=== PATIENT | female | born 1990 | race Caucasian/White ===

== ENCOUNTER 2024-08-13 12:44 | Outpatient (CLI) | payer OTHER, SELFPAY | END 2024-08-13 12:45 | disposition home or self-care (01) | PROVIDERS: PCP Family Medicine; Visit Provider Advanced Practice Midwife | DX: N91.2 Amenorrhea, unspecified (principal); Z32.01 Encounter for pregnancy test, result positive | CPT/HCPCS: 36415; 84702; 86850; 86900; 86901 ==

== ENCOUNTER 2025-02-01 14:08 | Outpatient (RCR) | payer OTHER, SELFPAY | END 2025-03-29 16:41 | disposition home or self-care (01) | LOC: ANHDMC 14:08 | PROVIDERS: PCP Family Medicine; Visit Provider Obstetrics & Gynecology | DX: O24.419 Gestational diabetes mellitus in pregnancy, unspecified control (principal); Z3A.00 Weeks of gestation of pregnancy not specified; Z71.89 Other specified counseling | CPT/HCPCS: G0108 ==

== ENCOUNTER 2025-03-15 15:40 | Outpatient (RCR) | payer OTHER, SELFPAY ==
[2025-02-10 18:11] VITALS: BP 127/54; PULSE 71
[2025-02-15 16:53] VITALS: BP 115/57; PULSE 73
[2025-02-22 17:03] VITALS: BP 129/72; PULSE 78
[2025-03-01 16:22] VITALS: BP 133/74; PULSE 75
[2025-03-08 16:59] VITALS: BP 130/71; PULSE 73
--- NOTE | ~2025-03-15 | US_ITS ---
EXAMINATION: US OB BPP wo non-stress DATE: 02/15/2025 17:10 INDICATION: GDM . TECHNIQUE: Real-time ultrasound of the pelvis was performed. COMPARISON: 02/10/2025 FINDINGS: There is a single living fetus in vertex presentation, longitudinal lie. The placenta is posterior, well distant from the cervix. heart rate is 145 bpm. The deepest vertical pocket measures 5.6 c m. Biophysical profile performed by the technologist: breathing (30 sec sustained breathing in 30 minutes): 2 out of 2. movement (3 gross body movements in 30 minutes: 2 out of 2. tone (one episode of onerbvy-sqbferwhl-jpeiweh limb movement): 2 out of 2. Amniotic fluid pocket (2 cm): 2 out of 2. Total score: 8 out of 8. IMPRESSION: Single living fetus in vertex presentation. Biophysical profile 8 out of 8. Reviewed, dictated and finalized at location K.
--- NOTE | ~2025-03-15 | US_ITS ---
EXAMINATION: US OB BPP wo non-stress DATE: 03/15/2025 17:27 CDT INDICATION: Gestational diabetes TECHNIQUE: Real-time transabdominal obstetric ultrasound. FINDINGS: There is a single intrauterine gestation in vertex presentation. The placenta is posterior without p lacenta previa. Deepest vertical pocket of amniotic fluid measures 5.4 cm cardiac activity and movement is noted with a heart rate of 154 beats per minute. Biophysical profile: breathin of 2 movement: 2 of 2 tone: 2 of 2 Amniotic fluid pocket: 2 of 2 Total score: 8 of 8 IMPRESSION: 1. Single intrauterine gestation in vertex presentation. 2: Total biophysical profile score of 8 out of 8. Reviewed, dictated and finalized at location A.
--- NOTE | ~2025-03-15 | US_ITS ---
EXAMINATION: US OB BPP wo non-stress DATE: 02/22/2025 17:04 CDT INDICATION: Gestational diabetes TECHNIQUE: Real-time transabdominal obstetric ultrasound. FINDINGS: There is a single intrauterine gestation in vertex presentation. The placenta is posterior, within t he fundus, without placenta previa. cardiac activity and movement is noted with a heart rate of 152 beats per minute. Biophysical profile: breathin of 2 movement: 2 of 2 tone: 2 of 2 Amniotic fluid pocket: 2 of 2 Total score: 8 of 8 Deepest vertical pocket measures 5.3 cm. IMPRESSION: 1. Single intrauterine gestation in vertex presentation. 2: Total biophysical profile score of 8 out of 8. Reviewed, dictated and finalized at location A.
--- NOTE | ~2025-03-15 | US_ITS ---
EXAMINATION: US OB BPP wo non-stress DATE: 02/10/2025 18:08 INDICATION: Gestational diabetes third trimester TECHNIQUE: Real-time pelvic ultrasound was performed. The interpreting radiologist was not present for the study. COMPARISON: None. FINDINGS: There is a single intrauterine gestation in vertex presentation. The placenta is posterior within the fundus of the uterus. heart rate is 155 beats per minute (bpm). Amniotic fluid volume appears subjectively normal, with the deepest vertical pocket measuring 9.14 cm . Biophysical profile performed by the technologist: breathing (30 sec sustained breathing in 30 minutes): 2 out of 2 movement (3 gross body movements in 30 minutes): 2 out of 2 tone (one episode of bhxvrgc-cjjzzvyud-acripft limb movement): 2 out of 2 Amniotic fluid pocket (2 cm): 2 out of 2 Total score: 8 out of 8 IMPRESSION: 1. Single intrauterine gestation in vertex presentation with heart rate of 155 bpm. 2. Biophysical profile 8 out of 8. Reviewed, dictated and finalized at location A. IMPRESSION: 1. Single intrauterine gestation in vertex presentation with heart rate o f 155 bpm. 2. Biophysical profile 8 out of 8.
--- NOTE | ~2025-03-15 | US_ITS ---
EXAMINATION: US OB BPP wo non-stress DATE: 03/01/2025 17:10 CDT INDICATION: Gestational diabetes TECHNIQUE: Real-time transabdominal obstetric ultrasound. FINDINGS: There is a single intrauterine gestation in vertex presentation. The placenta is posterior without placenta previa. cardiac activity and movement is noted with a heart rate of 144 beats per minute. Biophysical profile: breathin of 2 movement: 2 of 2 tone: 2 of 2 Amniotic fluid pocket: 2 of 2. The deepest vertical pocket measures 5.5 centimeters Total score: 8 of 8 IMPRESSION: 1. Single intrauterine gestation in vertex presentation. 2: Total biophysical profile score of 8 out of 8. Reviewed, dictated and finalized at location A.
--- NOTE | ~2025-03-15 | US_ITS ---
LIMITED OBSTETRIC ULTRASOUND/BIOPHYSICAL PROFILE Ordering provider: Roland Bustos MD History: . GDM . Comparison: None. FINDINGS: MATERNAL CERVIX: Not visualized. PRESENTATION: Vertex. Longitudinal lie. PLACENTAL LOCATION: Fundal posterior. No previa. HEART RATE: 157 bpm (normal is between 110 to 160 bpm). AMNIOTIC FLUID INDEX: Largest vertical pocket is 6.2 cm. OTHER: Maternal ovaries not visualized. SCORE: breathing movements: 2 movements: 2 tone: 2 Amniotic fluid volume: 2 Total: 8 IMPRESSION: Normal biophysical profile. Reviewed, dictated and finalized at location A. IMPRESSION: Normal biophysical profile.
[2025-03-15 17:15] VITALS: BP 121/66; PULSE 69
== END 2025-03-29 17:57 | disposition home or self-care (01) ==
LOC: ANHOBOP 15:40
PROVIDERS: PCP Family Medicine; Visit Provider Obstetrics & Gynecology
DX: O24.419 Gestational diabetes mellitus in pregnancy, unspecified control (principal); Z3A.33 33 weeks gestation of pregnancy; Z3A.34 34 weeks gestation of pregnancy; Z3A.35 35 weeks gestation of pregnancy; Z3A.36 36 weeks gestation of pregnancy; Z3A.37 37 weeks gestation of pregnancy; Z3A.38 38 weeks gestation of pregnancy
CPT/HCPCS: 59025; 76819

== ENCOUNTER 2025-03-19 11:01 | Outpatient (CLI) | payer OTHER, SELFPAY ==
--- OUTSIDE RECORDS SUMMARY | 2025-03-19 11:06 | XMS_ITS | Data Portability ---
Author Organization [facility] Joseluis PRESTON Address [address] [facility] [place] [address] Care Team Providers Care Mortarman Name Role Phone MARK CHIU Investment Counselor Assessment Encounter Date Assessment Date Assessment LastModified by Organization Details LastModified Time 04/23/2022 04/23/2022 JOANNA Nichole Not available 04/23/2022 10:29:30 Plan of Treatment Reminders Order Date Submit Date Provider Last Modified By Organization Details Last Modified Time Details Appointments None recorded. Lab Pap smear tests - FPAR 2.0 set 2021 022 [facility], [facility], [address], [place], [address], 2 09:26:59 vaginal pathogens panel, ROSIO+probe , vaginal fluid 2021 022 [facility], [address] [place] [address], [facility] [address], [place], [address], 2 06:13:15 CT + NG + TV, DNA, urine/swa b 2017 018 [facility], [facility], [address], [place], [address], 8 06:08:01 test, urine 2017 018 [email or web address] In-Office Order, Internal Use Only DO Not Attach Compendium DO Not Attach Compendium, Do Not Delete/merge, [id number] 8 18:08:45 urinalysi s, dipstick 2017 018 [email or web address] In-Office Order, Internal Use Only DO Not Attach Compendium DO Not Attach Compendium, Do Not Delete/merge, [id number] 8 18:08:45 test, urine 2015 016 HERMELINDO In-Office Order, Internal Use Only DO Not Attach Compendium DO Not Attach Compendium, Do Not Delete/merge, [id number] 6 13:13:52 urinalysi s, dipstick 2015 016 [email or web address] In-Office Order, Internal Use Only DO Not Attach Compendium DO Not Attach Compendium, Do Not Delete/merge, [id number] 6 17:53:03 test, urine 2015 016 In-Office Order, Internal Use Only DO Not Attach Compendium DO Not Attach Compendium, Do Not Delete/merge, [id number] 6 17:53:04 dhea-sulf ate, serum 2015 016 HERMELINDO GONZALEZ, [facility], [address], [place], [address], 6 07:11:09 lipid panel, serum 2015 016 HERMELINDO GONZALEZ, [facility], [address], [place], [address], 6 07:11:08 HbA1c (hemoglob in A1c), blood 2015 016 HERMELINDO GONZALEZ, [address] [place] [address] [address], [address], [place], [address], 6 07:11:09 CMP, serum or plasma 2015 016 HERMELINDO LISA, [address], [address], [place], [address], 6 07:11:08 testoster one, total, serum 2015 016 HERMELINDO GONZALEZ, [address], [address], [place], [address], 6 07:11:09 FSH (follicle -stimulat ing hormone), serum 2015 016 HERMELINDO GONZALEZ, [address], [address], [place], [address], 6 07:11:11 lh (luteiniz ing hormone), serum 2015 016 HERMELINDO GONZALEZ, [address], [address], [place], [address], 6 07:11:10 TSH, serum or plasma 2015 016 HERMELINDO GONZALEZ, [address], [address], [place], [address], 6 07:11:10 prolactin , serum 2015 016 HERMELINDO GONZALEZ, [address], [address], [place], [address], 6 07:11:11 pap, IG + HPV, cervical 2015 016 HERMELINDO GONZALEZ, [address], [address], [place], [address], 6 09:23:06 bacterial vaginosis + vaginitis panel, vaginal 2015 016 HERMELINDO GONZALEZ, [address], [address], [place], [address], 6 06:05:40 HSV (1+2) DNA, qual, PCR, unspecifi ed specimen 2015 016 HERMELINDO RENDONRP, [address], [address], [place], [address], 6 06:05:41 culture, vaginal/r ectal, streptoco ccus group B 2015 016 HERMELINDO [facility], [address], [address], [place], [address], 6 06:05:41 test, urine 2014 015 [email or web address] In-Office Order, Internal Use Only DO Not Attach Compendium DO Not Attach Compendium, Do Not Delete/merge, [id number] 5 16:07:28 urinalysi s, dipstick 2014 015 [email or web address] In-Office Order, Internal Use Only DO Not Attach Compendium DO Not Attach Compendium, Do Not Delete/merge, [id number] 5 16:07:28 pap, IG + reflex HR HPV 2014 015 HERMELINDO GONZALEZ, [address], [address], [place], [address], 5 10:40:15 bacterial vaginosis + vaginitis panel, vaginal 2014 015 HERMELINDO [facility], [address], [address], [place], [address], 5 20:08:12 HSV (1+2) DNA, qual, PCR, unspecifi ed specimen 2014 015 HERMELINDO RENDONRP, [address], [address], [place], [address], 5 20:08:13 Referral None recorded. Procedures None recorded. Surgeries None recorded. Imaging None recorded. Medication Orders Mirena 21 mcg/24 hr (up to 8 years) 52 mg intrauter ine device 2021 022 [email or web address] Not available 2 16:42:52 calcium 600 mg (as carbonate )-vitamin D3 20 mcg (800 unit) tablet 2017 018 [id number] [facility], [address] [place] [address], [address], 2 08:51:20 multivita min tablet 2017 018 [id number] In [facility], [address] [place] [address], [address], 2 08:51:31 Lo Loestrin Fe 1 mg-10 mcg (24)/10 mcg (2) tablet 2017 018 [email or web address] [facility] [id number], [address], 2 08:51:26 Cryselle (28) 0.3 mg-30 mcg tablet 2015 016 [facility] [employer] [facility], [address], [place], [place], [id number], 8 16:33:12 calcium 600 mg (as carbonate )-vitamin D3 20 mcg (800 unit) tablet 2015 016 [facility], [address], [id number], 2 08:51:20 metformin 1,000 mg tablet 2015 016 [facility] [employer] [facility]21106, [address], [place], [place], [id number], 8 16:34:53 Vitamin tablet [address] [facility]08263, [address], [place], [place], [id number], 8 16:34:20 simvastat in 20 mg tablet [address] [facility]98434, [address], [place], [place], [id number], 8 16:34:23 Lo Loestrin Fe 1 mg-10 mcg (24)/10 mcg (2) tablet 2015 016 [facility] #[facility], [address], [place], [place], [id number], 2 08:51:26 Patient TargetsNo targets recorded. Patient Instructions Encounter Date Encounter Id Patient Instructions Last Modified By Organization Details Last Modified Time 04/23/2016 [id number] When You Want to Lose Weight: Care Instructions [email or web address] Not available 04/23/2016 17:54:20 polycystic ovary syndrome: care instructions [email or web address] Not available 04/23/2016 17:54:20 05/13/2016 [id number] polycystic ovary syndrome: care instructions [email or web address] Not available 05/19/2016 12:27:57 05/05/2018 [id number] prediabetes: care instructions [email or web address] Not available 05/05/2018 18:08:45 polycystic ovary syndrome: care instructions [email or web address] Not available 05/05/2018 18:08:45 When You Want to Lose Weight: Care Instructions [email or web address] Not available 05/05/2018 18:39:14 27 yo morbidly obese CF, with history of PCOS, 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 Patient reports irregular menses and bleeding (light to heavy) for 2.5 weeks - one day used 30+ pads. Recently started on Metformin and Phentermine by PCP, patient admits to having 2 regular periods prior to this episode. Now, her period is similar to past menstruation. Will re-schedule annual WWE due to patient being on her period. Desires oral BCP to help regulate bleeding. Discussed options for weight loss while here in office, BMI 60.9. Patient prefers to continue weight loss medication and does not want information regarding weight loss surgery. PHQ is 14 and has recently begun taking Zoloft. [email or web address] Not available 05/05/2018 18:27:38 04/23/2022 [id number] heavy menstrual periods: care instructions Not available 04/23/2022 09:31:49 learning about control: intrauterine device (iud) Not available 04/23/2022 09:31:49 Reason for Referral None Reported. Results Created Date Observation Date Name Description Value Unit Range Abnormal Flag Note LastModifiedBy Organization Detail LastModifiedTime 05/05/20 18 05/05/2018 urina lysis , dipst ick Leukocytes Negati ve Not Available In-Office Order Internal Use Only DO Not Attach Compendium DO Not Attach Compendium, Do Not Delete/merge, [id number] 05/05/2018 17:05:17 05/05/20 18 05/05/2018 urina lysis , dipst ick Nitrite negati ve Not Available In-Office Order Internal Use Only DO Not Attach Compendium DO Not Attach Compendium, Do Not Delete/merge, [id number] 05/05/2018 17:05:17 05/05/20 18 05/05/2018 urina lysis , dipst ick Urobilinogen .2 Not Available In-Of fice Order Internal Use Only DO Not Attach Compendium DO Not Attach Compendium, Do Not Delete/merge, [id number] 05/05/2018 17:05:17 05/05/20 18 05/05/2018 urina lysis , dipst ick Protein Negati ve Not Available In-Office Order Internal Use Only DO Not Attach Compendium DO Not Attach Compendium, Do Not Delete/merge, [id number] 05/05/2018 17:05:17 05/05/20 18 05/05/2018 urina lysis , dipst ick pH 5.5 Not Available In-Office Order Internal Use Only DO Not Attach Compendium DO Not Attach Compendium, Do Not Delete/merge, [id number] 05/05/2018 17:05:17 05/05/20 18 05/05/2018 urina lysis , dipst ick Blood Large Not Available In-Office Order Internal Use Only DO Not Attach Compendium DO Not Attach Compendium, Do Not Delete/merge, 05/05/2018 17:05:17 05/05/20 18 05/05/2018 urina lysis , dipst ick Specific [place] 1.030 Not Available In-Off ice Order Internal Use Only DO Not Attach Compendium DO Not Attach Compendium, Do Not Delete/merge, 05/05/2018 17:05:17 05/05/20 18 05/05/2018 urina lysis , dipst ick Ketone Negati ve Not Available In-Office Order Internal Use Only DO Not Attach Compendium DO Not Attach Compendium, Do Not Delete/merge, 05/05/2018 17:05:17 05/05/20 18 05/05/2018 urina lysis , dipst ick Bilirubin Negati ve Not Available In-Office Order Internal Use Only DO Not Attach Compendium DO Not Attach Compendium, Do Not Delete/merge, 05/05/2018 17:05:17 05/05/20 18 05/05/2018 urina lysis , dipst ick Glucose Negati ve Not Available In-Office Order Internal Use Only DO Not Attach Compendium DO Not Attach Compendium, Do Not Delete/merge, 05/05/2018 17:05:17 05/05/20 18 05/05/2018 pregn lashaun test, urine HCG negati ve Not Available In-Office Order Internal Use Only DO Not Attach Compendium DO Not Attach Compendium, Do Not Delete/merge, 05/05/2018 17:04:55 05/15/20 16 05/15/2016 pregn lashaun test, urine HCG negati ve Not Available In-Office Order Internal Use Only DO Not Attach Compendium DO Not Attach Compendium, Do Not Delete/merge, 05/15/2016 17:14:33 04/23/20 16 04/23/2016 pregn lashaun test, urine HCG negati ve Not Available In-Office Order Internal Use Only DO Not Attach Compendium DO Not Attach Compendium, Do Not Delete/merge, 04/23/2016 16:52:28 04/23/20 16 04/23/2016 urina lysis , dipst ick Leukocytes Negati ve Not Available In-Office Order Internal Use Only DO Not Attach Compendium DO Not Attach Compendium, Do Not Delete/merge, 04/23/2016 16:52:15 04/23/20 16 04/23/2016 urina lysis , dipst ick Nitrite negati ve Not Available In-Office Order Internal Use Only DO Not Attach Compendium DO Not Attach Compendium, Do Not Delete/merge, 04/23/2016 16:52:15 04/23/20 16 04/23/2016 urina lysis , dipst ick Urobilinogen .2 Not Available In-Of fice Order Internal Use Only DO Not Attach Compendium DO Not Attach Compendium, Do Not Delete/merge, 04/23/2016 16:52:15 04/23/20 16 04/23/2016 urina lysis , dipst ick Protein Negati ve Not Available In-Office Order Internal Use Only DO Not Attach Compendium DO Not Attach Compendium, Do Not Delete/merge, 04/23/2016 16:52:15 04/23/20 16 04/23/2016 urina lysis , dipst ick pH 6.0 Not Available In-Office Order Internal Use Only DO Not Attach Compendium DO Not Attach Compendium, Do Not Delete/merge, 04/23/2016 16:52:15 04/23/20 16 04/23/2016 urina lysis , dipst ick Blood Hemoly zed: Trace Not Available In-Office Order Internal Use Only DO Not Attach Compendium DO Not Attach Compendium, Do Not Delete/merge, 04/23/2016 16:52:15 04/23/20 16 04/23/2016 urina lysis , dipst ick Specific [place] 1.025 Not Available In-Off ice Order Internal Use Only DO Not Attach Compendium DO Not Attach Compendium, Do Not Delete/merge, 04/23/2016 16:52:15 04/23/20 16 04/23/2016 urina lysis , dipst ick Ketone Negati ve Not Available In-Office Order Internal Use Only DO Not Attach Compendium DO Not Attach Compendium, Do Not Delete/merge, 04/23/2016 16:52:15 04/23/20 16 04/23/2016 urina lysis , dipst ick Bilirubin Negati ve Not Available In-Office Order Internal Use Only DO Not Attach Compendium DO Not Attach Compendium, Do Not Delete/merge, 04/23/2016 16:52:15 04/23/20 16 04/23/2016 urina lysis , dipst ick Glucose Negati ve Not Available In-Office Order Internal Use Only DO Not Attach Compendium DO Not Attach Compendium, Do Not Delete/merge, 04/23/2016 16:52:15 12/05/1912/05/2014 urina lysis , dipst ick Leukocytes Negati ve Not Available In-Office Order Internal Use Only DO Not Attach Compendium DO Not Attach Compendium, Do Not Delete/merge, 12/05/2014 10:54:02 12/05/1912/05/2014 urina lysis , dipst ick Nitrite negati ve Not Available In-Office Order Internal Use Only DO Not Attach Compendium DO Not Attach Compendium, Do Not Delete/merge, 12/05/2014 10:54:02 12/05/1912/05/2014 urina lysis , dipst ick Urobilinogen 1 Not Available In-Of fice Order Internal Use Only DO Not Attach Compendium DO Not Attach Compendium, Do Not Delete/merge, 12/05/2014 10:54:02 12/05/1912/05/2014 urina lysis , dipst ick Protein 30 Not Available In-Office Order Internal Use Only DO Not Attach Compendium DO Not Attach Compendium, Do Not Delete/merge, 12/05/2014 10:54:02 12/05/1912/05/2014 urina lysis , dipst ick pH 6.5 Not Available In-Office Order Internal Use Only DO Not Attach Compendium DO Not Attach Compendium, Do Not Delete/merge, 12/05/2014 10:54:02 12/05/1912/05/2014 urina lysis , dipst ick Blood Large Not Available In-Office Order Internal Use Only DO Not Attach Compendium DO Not Attach Compendium, Do Not Delete/merge, 12/05/2014 10:54:02 12/05/19 15 12/05/2014 urina lysis , dipst ick Specific [place] 1.025 Not Available In-Off ice Order Internal Use Only DO Not Attach Compendium DO Not Attach Compendium, Do Not Delete/merge, 12/05/2014 10:54:02 12/05/19 15 12/05/2014 urina lysis , dipst ick Ketone Negati ve Not Available In-Office Order Internal Use Only DO Not Attach Compendium DO Not Attach Compendium, Do Not Delete/merge, 12/05/2014 10:54:02 12/05/1912/05/2014 urina lysis , dipst ick Bilirubin Small Not Available In-Offic e Order Internal Use Only DO Not Attach Compendium DO Not Attach Compendium, Do Not Delete/merge, 12/05/2014 10:54:02 12/05/1912/05/2014 urina lysis , dipst ick Glucose Negati ve Not Available In-Office Order Internal Use Only DO Not Attach Compendium DO Not Attach Compendium, Do Not Delete/merge, 12/05/2014 10:54:02 12/05/1912/05/2014 urina lysis , dipst ick Appearance Cloudy Not Available In-Offi ce Order Internal Use Only DO Not Attach Compendium DO Not Attach Compendium, Do Not Delete/merge, 12/05/2014 10:54:02 12/05/1912/05/2014 urina lysis , dipst ick Color Yellow Not Available In-Office Order Internal Use Only DO Not Attach Compendium DO Not Attach Compendium, Do Not Delete/merge, 12/05/2014 10:54:02 12/05/1912/05/2014 pregn lashaun test, urine HCG negati ve Not Available In-Office Order Internal Use Only DO Not Attach Compendium DO Not Attach Compendium, Do Not Delete/merge, 12/05/2014 10:54:02 12/05/19 15 12/08/2014 pap, IG + refle x HR HPV diagnosis: COMMCAROLE T NEGAT SHERLY FOR INTRA EPITH ELIAL LESDANO N AND NEELIMA LOWERY . Not Available [facility] ([facility]) [address] [place], [address], 12/08/2014 10:40:15 12/05/19 15 12/08/2014 pap, IG + refle x HR HPV specimen adequacy: COMMEN T SATIS FACTO RY FOR EVALU ATION . ENDOC ERVIC AL AND/O R SQUAM OUS METAP LASTI C CELLS (ENDO CERVI ARCELIA COMPO NENT) ARE PRESE NT. Not Available [facility] ([facility]) [address] [place], [address], 12/08/2014 10:40:15 12/05/19 15 12/08/2014 pap, IG + refle x HR HPV clinician provided ICD9: LENNIE Leiva V72.3 1 ; ARNALDO CAMARA GYNEC OLOGI ARCELIA EXAMI NATDANO N Not Available [facility] ([facility]) [address] [place], [address], 12/08/2014 10:40:15 12/05/19 15 12/08/2014 pap, IG + refle x HR HPV performed by: LENNIE T EDITH HOYT , CYTOT ECHNO LOGIS T (ASCP ) Not Available [facility] ([facility]) [address] [place], [address], 12/08/2014 10:40:15 12/05/1912/08/2014 pap, IG + refle x HR HPV . . Not Available [facility] ([facility]) [address] [place], [address], 12/08/2014 10:40:15 12/05/1912/08/2014 pap, IG + refle x HR HPV note: LENNIE T THE PAP SMEAR IS A SCREE PARKER TEST SHIRA SWAN TO AID IN THE DETEC TION OF ALFREDO LIGNA NT AND MALIG NANT CONDI TIONS OF THE UTERI NE CERVI X. IT IS NOT A DIAGN OSTIC PROCE DURE AND SHOUL D NOT BE USED THE SOLE MEANS OF DETEC TING CERVI ARCELIA CANCE R. BOTH FALSE -POSI TIVE AND FALSE -NEGA TIVE REPOR TS DO OCCUR . . Not Available [facility] ([facility]) [address] [place], [address], 12/08/2014 10:40:15 12/05/19 15 12/08/2014 pap, IG + refle x HR HPV test methodology: COMMEN T THIS LIQUI D BASED THINP REP(R ) PAP TEST WAS SCREE DIONTE WITH THE USE OF AN IMAGE GUIDE D SYSTE M. Not Available [facility] ([facility]) [address] [place], [address], 12/08/2014 10:40:15 12/05/1912/08/2014 pap, IG + refle x HR HPV . COMMEN T THE HPV DNA REFLE X CRITE DEACON WERE NOT MET WITH THIS SPECI MEN RESUL T THERE FORE, NO HPV TESTI NG WAS PERFO RMED. . Not Available [facility] ([facility]) [address] [place], [address], 12/08/2014 10:40:15 12/05/19 15 12/08/2014 bacte rial vagin osis + vagin itis panel , vagin al natan albicans, ROSIO NEGATI VE negati ve Not Available [facility] ([facility]) [address] [place], [address], 12/10/2014 20:08:12 12/05/1912/08/2014 bacte rial vagin osis + vagin itis panel , vagin al natan glabrata, ROSIO NEGATI VE negati ve THIS TEST WAS DEVEL OPED AND ITS PERFO RMANC E EMANUEL CTERI STICS DETER MINED BY [facility]. IT HAS NOT BEEN CLEAR ED OR APPRO ODALYS BY THE FOOD AND DRUG ADMIN ISTRA TION. THE FDA HAS DETER MINED THAT SUCH CLEAR ANCE OR APPRO NICO IS NOT NECES EFRA. Not Available [facility] ([facility]) [address] [place], [address], 12/10/2014 20:08:12 12/05/19 15 12/08/2014 bacte rial vagin osis + vagin itis panel , vagin al trich vag by ROSIO NEGATI VE negati ve Not Available [facility] ([facility]) [address] [facility], [place], [address], 12/10/2014 20:08:12 12/05/19 15 12/09/2014 bacte rial vagin osis + vagin itis panel , vagin al atopobium vaginae HIGH - 2 score abnormal Not Available [facility] ([facility]) [address] [facility], [place], [address], 12/10/2014 20:08:12 12/05/19 15 12/09/2014 bacte rial vagin osis + vagin itis panel , vagin al bvab 2 MODERA TE - 1 score Not Available [facility] ([facility]) [address] [place] [address], [address], 12/10/2014 20:08:12 12/05/19 15 12/09/2014 bacte rial vagin osis + vagin itis panel , vagin al megasphaera 1 HIGH - 2 score abnormal CALCU LATE TOTAL SCORE BY ALEKSANDR G THE 3 INDIV IDUAL BACTE RIAL VAGIN OSIS (BV) MARKE R SCORE S TOGET HER. TOTAL SCORE IS INTER PRETE D FOLLO WS: . TOTAL SCORE 0-1: INDIC ATES THE ABSEN CE OF BV. TOTAL SCORE 2: INDET ERMIN ATE FOR BV. ADDIT IONAL CLINI ARCELIA DATA SHOUL D BE EVALU ATED TO ESTAB ANDRÉS A DIAGN OSIS. TOTAL SCORE 3-6: INDIC ATES THE PRESE NCE OF BV. . THIS TEST WAS DEVEL OPED AND ITS PERFO RMANC E EMANUEL CTERI STICS DETER MINED BY [facility]. IT HAS NOT BEEN CLEAR ED OR APPRO ODALYS BY THE FOOD AND DRUG ADMIN ISTRA TION. THE FDA HAS DETER MINED THAT SUCH CLEAR ANCE OR APPRO NICO IS NOT ABEL KRAUS. Not Available [facility] ([facility]) [address] [place], [address], 12/10/2014 20:08:12 12/05/19 15 12/10/2014 bacte rial vagin osis + vagin itis panel , vagin al chlamydia trachomatis, ROSIO NEGATI VE negati ve Not Available [facility] ([facility]) [address] [place], [address], 12/10/2014 20:08:12 12/05/19 15 12/10/2014 bacte rial vagin osis + vagin itis panel , vagin al neisseria gonorrhoeae, ROSIO NEGATI VE negati ve Not Available [facility] ([facility]) [address] [place], [address], 12/10/2014 20:08:12 12/05/19 15 12/07/2014 HSV (1+2) DNA, qual, PCR, unspe cifie d speci men hsv 1 ROSIO NEGATI VE negati ve Not Available [facility] ([facility]) [address] [place], [address], 12/10/2014 20:08:13 12/05/19 15 12/07/2014 HSV (1+2) DNA, qual, PCR, unspe cifie d speci men hsv 2 ROSIO NEGATI VE negati ve Not Available [facility] ([facility]) [address] [place], [address], 12/10/2014 20:08:13 04/23/20 16 04/26/2016 pap, IG + HPV, cervi arcelia HPV aptima NEGATI VE negati ve THIS TEST DETEC TS FOURT EEN HIGH- RISK HPV TYPES (16/1 8/31/ 33/35 /39/4 5/ 51/52 /56/5 8/59/ 66/68 ) WITHO UT DIFFE RENEDUARDO ATION . Not Available [facility] ([facility]) [address] [facility], [place], [address], 04/27/2016 09:23:06 04/23/20 16 04/27/2016 pap, IG + HPV, cervi arcelia diagnosis: LENNIE DUBOIS FOR INTRA EPITH ELIAL LESIO N AND SINDIKARL BEVELREY . Not Available [facility] ([facility]) [address] [facility], [place], [address], 04/27/2016 09:23:06 04/23/20 16 04/27/2016 pap, IG + HPV, cervi arcelia specimen adequacy: LENNIE Leiva SATIS FACTO MIHAELA FOR EVALU ATION . ENDOC ERVIC AL AND/O R SQUAM OUS METAP LASTI C CELLS (ENDO CERVI ARCELIA COMPO NENT) ARE PRESE NT. Not Available [facility] ([facility]) [address] [facility], [place], [address], 04/27/2016 09:23:06 04/23/20 16 04/27/2016 pap, IG + HPV, cervi arcelia clinician provided ICD10: LENNIE Leiva Z30.0 9 Not Available [facility] ([facility]) [address] [facility], [place], [address], 04/27/2016 09:23:06 04/23/20 16 04/27/2016 pap, IG + HPV, cervi arcelia performed by: LENNIE MUSA TH, CYTOT YOLI Leiva (ASCP ) Not Available [facility] ([facility]) [address] [facility], [place], [address], 04/27/2016 09:23:06 04/23/20 16 04/27/2016 pap, IG + HPV, cervi arcelia . . Not Available [facility] ([facility]) [address] [facility], [place], [address], 04/27/2016 09:23:06 04/23/20 16 04/27/2016 pap, IG + HPV, cervi arcelia note: COMMEN T THE PAP SMEAR IS A SCREE PARKER TEST DESIG DIONTE TO AID IN THE DETEC TION OF ALFREDO LIGNA NT AND MALIG NANT CONDI TIONS OF THE UTERI NE CERVI X. IT IS NOT A DIAGN OSTIC PROCE DURE AND SHOUL D NOT BE USED THE SOLE MEANS OF DETEC TING CERVI ARCELIA CANCE R. BOTH FALSE -POSI TIVE AND FALSE -NEGA TIVE REPOR TS DO OCCUR . Not Available [facility] ([facility]) [address] [place], [address], 04/27/2016 09:23:06 04/23/20 16 04/27/2016 pap, IG + HPV, cervi arcelia test methodology: LENNIE T THIS LIQUI D BASED THINP REP(R ) PAP TEST WAS SCREE DIONTE WITH THE USE OF AN IMAGE GUIDE Robb Cueto Not Available [facility] ([facility]) [address] [place], [address], 04/27/2016 09:23:06 04/24/20 16 04/26/2016 bacte rial vagin osis + vagin itis panel , vagin al atopobium vaginae LOW - 0 score Not Available [facility] ([facility]) [address] [place], [address], 04/27/2016 06:05:40 04/24/20 16 04/26/2016 bacte rial vagin osis + vagin itis panel , vagin al bvab 2 LOW - 0 score Not Available [facility] ([facility]) [address] [place], [address], 04/27/2016 06:05:40 04/24/20 16 04/26/2016 bacte rial vagin osis + vagin itis panel , vagin al megasphaera 1 LOW - 0 score CALCU LATE TOTAL SCORE BY ALEKSANDR Hoffman THE 3 INDIV IDUAL BACTE RIAL VAGIN OSIS (BV) MARKE R SCORE S TOGET HER. TOTAL SCORE IS INTER PRETE D FOLLO WS: TOTAL SCORE 0-1: INDIC ATES THE ABSEN CE OF BV. TOTAL SCORE 2: INDET MATYIN ATE FOR BV. ADDIT IONAL CLINI ARCELIA DATA SHOUL D BE EVALU ATED TO ESTAB ANDRÉS A DIAGN OSIS. TOTAL SCORE 3-6: INDIC ATES THE PRESE NCE OF BV. THIS TEST WAS DEVEL OPED AND ITS PERFO RMANC E EMANUEL CTERI STICS DETER MINED BY [employer]. IT HAS NOT BEEN CLEAR ED OR APPRO ODALYS BY THE FOOD AND DRUG ADMIN ISTRA TION. THE FDA HAS DETER MINED THAT SUCH CLEAR ANCE OR APPRO NICO IS NOT NECES EFRA. Not Available [facility] ([facility]) [address] [place], [address], 04/27/2016 06:05:40 04/24/20 16 04/26/2016 bacte rial vagin osis + vagin itis panel , vagin al natan albicans, ROSIO NEGATI VE negati ve Not Available [facility] ([facility]) [address] [place], [address], 04/27/2016 06:05:40 04/24/20 16 04/26/2016 bacte rial vagin osis + vagin itis panel , vagin al natan glabrata, ROSIO NEGATI VE negati ve THIS TEST WAS DEVEL OPED AND ITS PERFO RMANC E EMANUEL CTERI STICS DETER MINED BY [facility]. IT HAS NOT BEEN CLEAR ED OR APPRO ODALYS BY THE FOOD AND DRUG ADMIN ISTRA TION. THE FDA HAS DETER MINED THAT SUCH CLEAR ANCE OR APPRO NICO IS NOT NECES EFRA. Not Available [facility] ([facility]) [address] [place], [address], 04/27/2016 06:05:40 04/24/20 16 04/26/2016 bacte rial vagin osis + vagin itis panel , vagin al trich vag by ROSIO NEGATI VE negati ve Not Available [facility] ([facility]) [address] [place], [address], 04/27/2016 06:05:40 04/24/20 16 04/26/2016 bacte rial vagin osis + vagin itis panel , vagin al chlamydia trachomatis, ROSIO NEGATI VE negati ve Not Available [facility] ([facility]) [address] [place], [address], 04/27/2016 06:05:40 04/24/20 16 04/26/2016 bacte rial vagin osis + vagin itis panel , vagin al neisseria gonorrhoeae, ROSIO NEGATI VE negati ve Not Available [facility] ([facility]) [address] [place], [address], 04/27/2016 06:05:40 04/24/20 16 04/26/2016 HSV (1+2) DNA, qual, PCR, unspe cifie d speci men hsv 1 ROSIO NEGATI VE negati ve Not Available [facility] ([facility]) [address] [place], [address], 04/27/2016 06:05:41 04/24/20 16 04/26/2016 HSV (1+2) DNA, qual, PCR, unspe cifie d speci men hsv 2 ROSIO NEGATI VE negati ve Not Available [facility] ([facility]) [address] [place] [address], [address], 04/27/2016 06:05:41 04/24/20 16 04/26/2016 cultu re, vagin al/re ctal, strep tococ cus group B strep gp B ROSIO POSITI VE negati ve abnormal CENTE RS FOR DISEA SE CONTR OL AND PREVE NTION (CDC) AND AMERI CAN CONGR ESS OF OBSTE TRICI ANS AND GYNEC OLOGI STS (ACOG ) GUIDE LINES FOR PREVE NTION OF PERIN ATAL GROUP B STREP TOCOC ARCELIA (GBS) DISEA SE SPECI FY CO-CO LLECT ION OF A VAGIN AL AND RECTA L SWAB SPECI MEN TO MAXIM IZE SENSI TIVIT Y OF GBS DETEC TION. PER THE CDC AND ACOG, SWABB ING BOTH THE LOWER VAGIN A AND RECTU M SUBST ANTIA LLY INCRE ASES THE YIELD OF DETEC TION CRISSY RED WITH SAMPL ING THE VAGIN A ALONE . PENIC ILLIN G, AMPIC ILLIN , OR CEFAZ CHADD ARE INDIC ATED FOR INTRA PARTU M PROPH YLAXI S OF PERIN ATAL GBS COLON IZATI ON. REFLE X SUSCE PTIBI LITY TESTI NG SHOUL D BE PERFO RMED PRIOR TO USE OF CLIND AMYCI N ONLY ON GBS ISOLA ADDI FROM PENIC ILLIN -SCOTT RGIC WOMEN WHO ARE CONSI DERED A HIGH RISK FOR ANAPH YLAXI S. TREAT MENT WITH VANCO MYCIN WITHO UT ADDIT IONAL TESTI NG IS WARRA NTED IF RESIS TANCE TO CLIND AMYCI N IS NOTED . Not Available [facility] ([facility]) [address] [place], [address], 04/27/2016 06:05:41 04/26/20 16 04/27/2016 CMP, serum or plasm a glucose, serum 117 mg/dL 65-99 above high normal Not Available [facility] ([facility]) [address] [place], [address], 04/27/2016 07:11:08 04/26/20 16 04/27/2016 CMP, serum or plasm a BUN 8 mg/dL 6-20 Not Available [facility] ([facility]) [address] [place], [address], 04/27/2016 07:11:08 04/26/20 16 04/27/2016 CMP, serum or plasm a creatinine, serum 0.64 mg/dL 0.57-1 .00 Not Available [facility] ([facility]) [address] [place], [address], 04/27/2016 07:11:08 04/26/20 16 04/27/2016 CMP, serum or plasm a eGFR if nonafricn AM 124 mL/mi n/1.7 3 >59 Not Available [facility] ([facility]) [address] [facility], [place], [address], 04/27/2016 07:11:08 04/26/20 16 04/27/2016 CMP, serum or plasm a eGFR if africn AM 143 mL/mi n/1.7 3 >59 Not Available [facility] ([facility]) [address] [facility] [place], [address], 04/27/2016 07:11:08 04/26/20 16 04/27/2016 CMP, serum or plasm a BUN/creatini ne ratio 13 8-20 Not Available [facility] ([facility]) [address] [facility] [place], [address], 04/27/2016 07:11:08 04/26/20 16 04/27/2016 CMP, serum or plasm a sodium, serum 141 mmol/ L 134-14 4 Not Available [facility] ([facility]) [address] [place], [address], 04/27/2016 07:11:08 04/26/20 16 04/27/2016 CMP, serum or plasm a potassium, serum 4.6 mmol/ L 3.5-5. 2 Not Available [facility] ([facility]) [address] [place], [address], 04/27/2016 07:11:08 04/26/20 16 04/27/2016 CMP, serum or plasm a chloride, serum 100 mmol/ L 97-108 Not Available [facility] ([facility]) [address] [place], [address], 04/27/2016 07:11:08 04/26/20 16 04/27/2016 CMP, serum or plasm a carbon dioxide, total 24 mmol/ L 18-29 Not Available [facility] ([facility]) [address] [place], [address], 04/27/2016 07:11:08 04/26/20 16 04/27/2016 CMP, serum or plasm a calcium, serum 9.6 mg/dL 8.7-10 .2 Not Available [facility] ([facility]) [address] [facility] [place], [address], 04/27/2016 07:11:08 04/26/20 16 04/27/2016 CMP, serum or plasm a protein, total, serum 7.5 g/dL 6.0-8. 5 Not Available [facility] ([facility]) [address] [facility] [place], [address], 04/27/2016 07:11:08 04/26/20 16 04/27/2016 CMP, serum or plasm a albumin, serum 4.3 g/dL 3.5-5. 5 Not Available [facility] ([facility]) [address] [facility] [place], [address], 04/27/2016 07:11:08 04/26/2004/27/2016 CMP, serum or plasm a globulin, total 3.2 g/dL 1.5-4. 5 Not Available [facility] ([facility]) [address] [facility] [place], [address], 04/27/2016 07:11:08 04/26/2004/27/2016 CMP, serum or plasm a A/G ratio 1.3 1.1-2. 5 Not Available [facility] ([facility]) [address] [facility] [place], [address], 04/27/2016 07:11:08 04/26/2004/27/2016 CMP, serum or plasm a bilirubin, total 0.6 mg/dL 0.0-1. 2 Not Available [facility] ([facility]) [address] [facility] [place], [address], 04/27/2016 07:11:08 04/26/2004/27/2016 CMP, serum or plasm a alkaline phosphatase, S 78 IU/L 39-117 Not Available [facility] ([facility]) [address] [place], [address], 04/27/2016 07:11:08 04/26/20 16 04/27/2016 CMP, serum or plasm a AST (SGOT) 41 IU/L 0-40 above high normal Not Available [facility] ([facility]) [address] [facility] [place], [address], 04/27/2016 07:11:08 04/26/20 16 04/27/2016 CMP, serum or plasm a ALT (SGPT) 51 IU/L 0-32 above high normal Not Available [facility] ([facility]) [address] [facility] [place], [address], 04/27/2016 07:11:08 04/26/20 16 04/27/2016 lipid panel , serum cholesterol, total 185 mg/dL 100-19 9 Not Available [facility] ([facility]) [address] [place], [address], 04/27/2016 07:11:08 04/26/2004/27/2016 lipid panel , serum triglyceride s 134 mg/dL 0-149 Not Available [facility] ([facility]) [address] [place], [address], 04/27/2016 07:11:08 04/26/2004/27/2016 lipid panel , serum HDL cholesterol 37 mg/dL >39 below low normal ACCOR DING TO ATP-I II GUIDE LINES , HDL-C >59 MG/DL IS CONSI DERED A NEGAT SHERLY RISK FACTO R FOR CHD. Not Available [facility] ([facility]) [address] [facility] [place], [address], 04/27/2016 07:11:08 04/26/2004/27/2016 lipid panel , serum VLDL cholesterol arcelia 27 mg/dL 5-40 Not Available [facility] ([facility]) [address] [place], [address], 04/27/2016 07:11:08 04/26/20 16 04/27/2016 lipid panel , serum LDL cholesterol calc 121 mg/dL 0-99 above high normal Not Available [facility] ([facility]) [address] [place], [address], 04/27/2016 07:11:08 04/26/20 16 04/27/2016 lipid panel , serum comment: DISTRIBUTOR OF DIRECTORIES Not Available [facility] ([facility]) [address] [facility], [place], [address], 04/27/2016 07:11:08 04/26/20 16 04/27/2016 lipid panel , serum LDL/HDL ratio 3.3 ratio _unit s 0.0-3. 2 above high normal LDL/H DL RATIO MEN WOMEN 1/2 AVG.R ISK 1.0 1.5 AVG.R ISK 3.6 3.2 2X AVG.R ISK 6.2 5.0 3X AVG.R ISK 8.0 6.1 Not Available [facility] ([facility]) [address] [facility], [place], [address], 04/27/2016 07:11:08 04/26/20 16 04/27/2016 testo stero ne, total , serum testosterone , serum 53 NG/dL 8-48 above high normal Not Available [facility] ([facility]) [address] [place], [address], 04/27/2016 07:11:09 04/26/20 16 04/27/2016 testo stero ne, total , serum comment: DISTRIBUTOR OF DIRECTORIES Not Available [facility] ([facility]) [address] [facility], [place], [address], 04/27/2016 07:11:09 04/26/20 16 04/27/2016 HbA1c (hemo globi n A1c), blood hemoglobin A1C 6.2 % 4.8-5. 6 above high normal PRE-D IABET ES: 5.7 - 6.4 DIABE ADDI: >6.4 GLYCE MEKA CONTR OL FOR ADULT S WITH DIABE ADDI: <7.0 Not Available [facility] ([facility]) [address] [place], [address], 04/27/2016 07:11:09 04/26/20 16 04/27/2016 dhea- sulfa te, serum DHEA-sulfate 263.0 ug/dL 84.8-3 78.0 Not Available [facility] ([facility]) [address] [place], [address], 04/27/2016 07:11:09 04/26/20 16 04/27/2016 TSH, serum or plasm a TSH 3.110 uIU/m L 0.450- 4.500 Not Available [facility] ([facility]) [address] [place], [address], 04/27/2016 07:11:10 04/26/20 16 04/27/2016 lh (lute inizi ng hormo ne), serum LH 8.1 mIU/m L FOLLI CULAR PHASE 2.4 - 12.6 OVULA TION PHASE 14.0 - 95.6 LUTEA L PHASE 1.0 - 11.4 POSTM ENOPA USAL 7.7 - 58.5 Not Available [facility] ([facility]) [address] [place], [address], 04/27/2016 07:11:10 04/26/20 16 04/27/2016 FSH (foll icle- stimu latin g hormo ne), serum FSH 5.5 mIU/m L FOLLI CULAR PHASE 3.5 - 12.5 OVULA TION PHASE 4.7 - 21.5 LUTEA L PHASE 1.7 - 7.7 POSTM ENOPA USAL 25.8 - 134.8 Not Available [facility] ([facility]) [address] [place], [address], 04/27/2016 07:11:11 04/26/20 16 04/27/2016 prola ctin, serum prolactin 16.0 NG/mL 4.8-23 .3 Not Available [facility] ([facility]) [address] [place], [address], 04/27/2016 07:11:11 05/05/20 18 05/07/2018 CT + NG + TV, DNA, urine /swab chlamydia by ROSIO Negati ve negati ve Not Available [facility] ([facility]) [address] [facility], [place], [address], 05/07/2018 06:08:01 05/05/20 18 05/07/2018 CT + NG + TV, DNA, urine /swab gonococcus by ROSIO Negati ve negati ve Not Available [facility] ([facility]) [address] [place], [address], 05/07/2018 06:08:01 05/05/20 18 05/07/2018 CT + NG + TV, DNA, urine /swab trich vag by ROSIO Negati ve negati ve Not Available [facility] ([facility]) [address] [place], [address], 05/07/2018 06:08:01 04/23/20 22 04/24/2022 NUSWA B VAGIN ITIS PLUS (VG+) atopobium vaginae Low - 0 score Not Available [facility] ([facility]) [address] [place], [address], 04/25/2022 06:13:15 04/23/20 22 04/24/2022 NUSWA B VAGIN ITIS PLUS (VG+) bvab 2 Low - 0 score Not Available [facility] ([facility]) [address] [place], [address], 04/25/2022 06:13:15 04/23/20 22 04/24/2022 NUSWA B VAGIN ITIS PLUS (VG+) megasphaera 1 Low - 0 score Calcu late total score by aleksandr hoffman the 3 indiv idual bacte rial vagin osis (BV) marke r score s toget her. Total score is inter prete d as follo ws: Total score 0-1: Indic ates the absen ce of BV. Total score 2: Indet ermin ate for BV. Addit ional clini arcelia data shoul d be evalu ated to estab andrés a diagn osis. Total score 3-6: Indic ates the prese nce of BV. This test was devel oped and its perfo rmanc e emanuel cteri stics deter mined by [facility]. It has not been clear ed or appro odalys by the Food and Drug Admin istra tion. Not Available [facility] ([facility]) [address] [place], [address], 04/25/2022 06:13:15 04/23/20 22 04/24/2022 NUSWA B VAGIN ITIS PLUS (VG+) natan albicans, ROSIO Negati ve negati ve Not Available [facility] ([facility]) [address] [place], [address], 04/25/2022 06:13:15 04/23/20 22 04/24/2022 NUSWA B VAGIN ITIS PLUS (VG+) natan glabrata, ROSIO Negati ve negati ve Not Available [facility] ([facility]) [address] [place], [address], 04/25/2022 06:13:15 04/23/20 22 04/24/2022 NUSWA B VAGIN ITIS PLUS (VG+) trich vag by ROSIO Negati ve negati ve Not Available [facility] ([facility]) [address] [place], [address], 04/25/2022 06:13:15 04/23/20 22 04/24/2022 NUSWA B VAGIN ITIS PLUS (VG+) chlamydia trachomatis, ROSIO Negati ve negati ve Not Available [facility] ([facility]) [address] [place], [address], 04/25/2022 06:13:15 04/23/20 22 04/24/2022 NUSWA B VAGIN ITIS PLUS (VG+) neisseria gonorrhoeae, ROSIO Negati ve negati ve Not Available [facility] ([facility]) [address] [place], [address], 04/25/2022 06:13:15 04/23/20 22 04/25/2022 IGP, APTIM A HPV HPV aptima Negati ve negati ve This nucle ic acid ampli ficat ion test detec ts fourt een high- risk HPV types (16,1 8,31, 33,35 ,39,4 5,51, 52,56 ,58,5 9,66, 68) witho ut diffe renti ation . Not Available [facility] ([facility]) [address] [facility], [place], [address], 04/26/2022 09:26:59 04/23/20 22 04/26/2022 IGP, APTIM A HPV diagnosis: Commen t NEGAT SHERLY FOR INTRA EPITH ELIAL ANASTASIA Esteves OR NEELIMA LOWERY . Not Available [facility] ([facility]) [address] [place], [address], 04/26/2022 09:26:59 04/23/20 22 04/26/2022 IGP, APTIM A HPV specimen adequacy: Commen t Satis facto ry for evalu ation . Endoc ervic al and/o r squam ous metap lasti c cells (endo cervi arcelia compo nent) are prese nt. Not Available [facility] ([facility]) [address] [place], [address], 04/26/2022 09:26:59 04/23/20 22 04/26/2022 IGP, APTIM A HPV clinician provided ICD10: Commen t Z01.4 19 Not Available [facility] ([facility]) [address] [place], [address], 04/26/2022 09:26:59 04/23/20 22 04/26/2022 IGP, APTIM A HPV performed by: Lennie Pringlemi th, Cytot echjoselyn pierson t (ASCP ) Not Available [facility] ([facility]) [address] [place], [address], 04/26/2022 09:26:59 04/23/20 22 04/26/2022 IGP, APTIM A HPV . . Not Available [facility] ([facility]) [address] [place], [address], 04/26/2022 09:26:59 04/23/20 22 04/26/2022 IGP, APTIM A HPV note: Lennie leiva The Pap smear is a scree parker test desig dionte to aid in the detec tion of alfredo ligna nt and malig nant condi tions of the uteri ne cervi x. It is not a diagn ostic proce dure and shoul d not be used as the sole means of detec ting cervi arcelia cance r. Both false -posi tive and false -nega tive repor ts do occur . Not Available [facility] ([facility]) [address] [place], [address], 04/26/2022 09:26:59 04/23/20 22 04/26/2022 IGP, APTIM A HPV test methodology: TNP The Thin Prep( R) Image r was unabl e to read this speci men. There fore a manua l revie w was perfo rmed. Not Available [facility] ([facility]) [address] [place], [address], 04/26/2022 09:26:59 Result Notes None recorded. Problems Name Problem SNOMED Code Status Onset Date Resolution Date Notes Provider Name and Address Organization Details Recorded Time Anxiety 35733045 Active 2017 SANDIP Castañeda 8 16:57:49 Depressive disorder 30523668 Completed 201705/05/2018 SANDIP Castañeda 8 18:20:38 Morbid obesity 996835680 Active 2017 SANDIP Castañeda SIA[facility] 8 18:18:42 History of depression 432412659 Active 2017 SANDIP Castañeda SIAlexander 8 18:20:34 Polycystic ovaries Active Terrance sullivan [facility] 6 12:27:57 Obesity 423513579 Completed 05/05/2018 SANDIP Castañeda SIAlexander 8 18:18:34 Hyperlipide saurabh 51891420 Active Terrance sullivan [place] [facility] 6 12:34:57 Impaired glucose tolerance 2398812 Active Terrance sullivan [place] [facility] 6 12:34:57 Testosteron e level above reference range 594365444 Active Terrance usllivan [place] - [facility] 6 12:34:57 Problem Notes None recorded. Procedures Surgical History Date Name Laterality Status Provider Name and Address Organization Details Recorded Time 05/05/20 18 Date of Last Pap Smear completed Sabrina Bauer MA [facility] 05/05/2018 16:35:13 11/24/19 Tonsillectomy completed Sabrina Bauer MA [facility] 12/05/2014 10:48:13 Imaging Results None recorded. Procedure Notes None recorded. Medical Equipment None Reported. Allergies Allergen ID Allergen Name Allergen Category Reaction Reaction Severity Criticality Documentation Date Start Date Code Code System Note Provider Name and Address Organization Details Recorded Time 54540 codeine medicatio n vomiting severe Not available 12/05/2014 2670 RxNorm Not Available Not Available Not Available Medications Name Sig Start Date Stop Date Status Note LastModified by Organization Details LastModified Time multivitami n tablet Take 1 tablet every day by oral route. 04/23 completed Not Available Not Available Not Available Mirena 21 mcg/24 hr (up to 8 years) 52 mg intrauterin e device Take 1 device by intrauter ine route. 2021 active Not Available Not Available Not Avai lable azithromyci n 250 mg tablet 05/05 completed Not Available Not Available Not Available ibuprofen 800 mg tablet 05/05 completed Not Available Not Available Not Available ondansetron HCl 4 mg tablet 05/05 completed Not Available Not Available Not Available spironolact one 100 mg tablet Take 1 tablet twice a day by oral route. 05/05 completed Not Available Not Available Not Available diphenoxyla te-atropine 2.5 mg-0.025 mg tablet 05/05 completed Not Available Not Available Not Available penicillin V potassium 500 mg tablet Take 1 tablet twice a day by oral route for 10 days. 05/05 completed Not Available Not Available Not Available metronidazo le 500 mg tablet Take 1 tablet twice a day by oral route as directed for 5 days. 05/05 completed Not Available Not Available Not Available ciprofloxac in 500 mg tablet 05/05 completed Not Available Not Available Not Available Vitamin tablet Take 1 tablet every day by oral route as directed. 05/05 completed Not Available Not Available Not Available triamcinolo ne acetonide 0.025 % topical cream 05/05 completed Not Available Not Available Not Available Zoloft 50 mg tablet Take 1 tablet every day by oral route. 04/23 completed Not Available Not Available Not Available simvastatin 20 mg tablet Take 1 tablet every day by oral route. 05/05 completed Not Available Not Available Not Available erythromyci n 5 mg/gram (0.5 %) eye ointment 05/05 completed Not Available Not Available Not Available metformin 1,000 mg tablet Take 1 tablet twice a day by oral route. 05/05 completed Not Available Not Available Not Available hydroxyzine HCl 25 mg tablet 05/05 completed Not Available Not Available Not Available ibuprofen 600 mg tablet 05/05 completed Not Available Not Available Not Available betamethaso ne dipropionat e 0.05 % lotion 05/05 completed Not Available Not Available Not Available Cryselle (28) 0.3 mg-30 mcg tablet Take 1 tablet every day by oral route. 05/05 completed Not Available Not Available Not Available Auroguard 5.4 %-1.4 % ear drops 05/05 completed Not Available Not Available Not Available phentermine 04/23 completed Not Available Not Available Not Available metformin ER 1,000 mg 24 hr tablet,exte nded release (gastric reten.) Take 2 tablets every day by oral route. 04/23 completed Not Available Not Available Not Available Lo Loestrin Fe 1 mg-10 mcg (24)/10 mcg (2) tablet Take 1 tablet every day by oral route. 04/23 completed Not Available Not Available Not Available 28 mg iron-800 mcg tablet 05/05 completed Not Available Not Available Not Available calcium 600 mg (as carbonate)- vitamin D3 20 mcg (800 unit) tablet Take 1 tablet twice a day by oral route for 30 days. 04/23 completed Not Available Not Available Not Available Virtussin AC 10 mg-100 mg/5 mL oral liquid 05/05 completed Not Available Not Available Not Available Vitals Date Recorded Body weight Body mass index (BMI) Body height Systolic blood pressure Diastolic blood pressure Provider Name and Address Organization Details Last Updated DateTime 05/05/2018 042990.8 1 g 60.9 kg/m2 165.1 cm 110 mm[Hg] 60 mm[Hg] Sabrina Bauer MA [facility] 8 16:30:35 Date Recorded Body height Body mass index (BMI) Body weight Heart rate Body temperature Oxygen saturation Oxygen saturation in Arterial blood by Pulse oximetry Systolic blood pressure Diastolic blood pressure Provider Name and Address Organization Details Last Updated DateTime 2 165.1 cm 59.8 kg/m2 361465. 46 g 59 /min 99.1 [degF] 97 % 97 % 122 mm[Hg] 80 mm[Hg] India Fleming [place] [facility] 2 08:50:55 Date Recorded Body height Body mass index (BMI) Body weight Systolic blood pressure Diastolic blood pressure Provider Name and Address Organization Details Last Updated DateTime 12/05/2014 165.1 cm 62.1 kg/m2 763705.9 5401 g 122 mm[Hg] 86 mm[Hg] Sabrina Bauer [place] [facility] 5 10:42:47 Date Recorded Body weight Body mass index (BMI) Body height Systolic blood pressure Diastolic blood pressure Provider Name and Address Organization Details Last Updated DateTime 04/23/2016 250192.0 243 g 62.9 kg/m2 167.64 cm 124 mm[Hg] 68 mm[Hg] Lou Ryan MA [facility] 6 16:50:54 Date Recorded Body weight Body mass index (BMI) Body height Systolic blood pressure Diastolic blood pressure Provider Name and Address Organization Details Last Updated DateTime 05/13/2016 505660.4 7008 g 62 kg/m2 167.64 cm 132 mm[Hg] 86 mm[Hg] Sabrina Bauer MA [facility] 6 12:25:25 Social History Question Answer Notes LastModified by Organizat ion Details LastModified Time Tobacco Smoking Status Current Every Day Smoker India Fleming MA [facility], [facility] 04/23/2022 08:53:14 Do You Have An Advance Directive? No Information not available 12/05/2014 What Is Your Level Of Alcohol Consumption? Occasional Information not available 12/05/2014 Is Blood Transfusion Acceptable In An Emergency? Yes Information not available 12/05/2014 What Is Your Level Of Caffeine Consumption? Moderate Information not available 12/05/2014 How Much Tobacco Do You Chew? None Information not available 12/05/2014 In The 14 Days Before Symptom Onset, Have You Had Close Contact With A Laboratory-confi rmed COVID-19 While That Case Was Ill? No Information not available 04/23/2022 In The 14 Days Before Symptom Onset, Have You Had Close Contact With A Person Who Is Under Investigation For COVID-19 While That Person Was Ill? No Information not available 04/23/2022 Have You Been To An Area Known To Be High Risk For COVID-19? No Information not available 04/23/2022 Are You Currently Employed? Yes Information not available 12/05/2014 What Type Of Diet Are You Following? REGULAR Information not available 12/05/2014 Do You Or Have You Ever Used E-cigarettes Or Vape? 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 With Others Information not available 12/05/2014 What Was The Date Of Your Most Recent Tobacco Screening? 04/23/2022 Information not available 04/23/2022 How Many Children Do You Have? 0 Information not available 12/05/2014 Performs Monthly Self-breast Exam? Yes Information not available 12/05/2014 Do You Use Protection During Sex? No Information not available 12/05/2014 What Is Your Relationship Status? Information not available 12/05/2014 Seat Belts Used Routinely Yes Information not available 12/05/2014 Are You Sexually Active? Yes Information not available 12/05/2014 Do You Have Smoke And Carbon Monoxide Detectors In Your Home? Yes Information not available 04/23/2022 Are You Passively Exposed To Smoke? Yes Information not available 04/23/2022 Do You Or Have You Ever Used Smokeless Tobacco? Never Used Smokeless Tobacco Information not available 04/23/2022 How Much Tobacco Do You Smoke? No Information not available 12/05/2014 General Stress Level Medium Information not available 12/05/2014 Do You Use Any Illicit Or Recreational Drugs? Yes Marijuana Information not available 04/23/2022 Do You Use Sunscreen Routinely? Yes Information not available 12/05/2014 Has Tobacco Cessation Counseling Been Provided? Yes Information not available 04/23/2022 On What Date Was Tobacco Cessation Counseling Provided? 04/23/2022 Information not available 04/23/2022 Do You Or Have You Ever Used Any Other Forms Of Tobacco Or Nicotine? Yes Information not available 04/23/2022 How Many Years Have You Used E-cigarettes Or Vape? 5 Information not available 04/23/2022 Sex: Female Functional Status Question Answer Note LastModified by Organization D etails LastModified Time What is your exercise level? Moderate Information not available 05/05/2018 Mental Status None recorded. Family History Relationship Description Onset Age of this Age Resolved Age Notes LastModified by Organization Details LastModified Time Father Diabetes mellitus [email or web address] Not available 2015 12:35:09 Medical History Condition Response Heart Problems N Other N High Blood Pressure N Breast Cancer N Thyroid Problems N Kidney or Bladder Problems N Lung Disease N GI Problems N Depression N Blood Clots N Acne N Eating Disorder N Breast Problem N Anemia N Anesthesia Complications N Headaches/Migraines N Ovarian Cancer N Diabetes N Anxiety Disorder N Muscle, Joint, or Bone Problems N Blood Transfusions N Seizures/Epilepsy N Arthritis N Polyps N Infertility N Acid Reflux (GERD) N Cancer N Stroke N Abuse/Domestic Violence N Asthma N Endometriosis N High Cholesterol N Hepatitis N Liver Disease N Heart Disease N Fibromyalgia N Pre-Eclampsia N Hypertension N Osteoporosis N Kidney Disease N Gynecological History Statement/Question Response Abnormal Pap N Flow Heavy Date of LMP 03/09/2022 STIs/STDs N HPV Vaccine N Duration of Flow (days) 3 Age at Menarche 12 Current Control Method None Frequency of Cycle (Q days) 30 Sexually Active? Y Menses Monthly Y Date of Last Pap Smear 05/05/2018 Sexual Problems? N LMP Approximate Desired Control Method Unknown Obstetrics History GPAL:G 0 P 0 0 0 0 Type Value Multiple Births 0 Full Term 0 Induced 0 Spontaneous 0 Premature 0 Living 0 Ectopics 0 Total 0 Past Encounters Encounter ID Performer Location Encounter Start Date Encounter Closed Date Diagnosis/Indication Diagnosis SNOMED-CT Code Diagnosis ICD10 Code Diagnosis Note [id number] Sascha (SOFTWARE TEST ENGINEER) [address] [place] [address] [phone] 12/05/2014 10:15:57 12/05/2014 11:35:10 Gynecologic examination [id number] Blas Varghese Sascha (SOFTWARE TEST ENGINEER) [address] [place] [address] [phone] 04/23/2016 15:24:49 04/24/2016 09:07:20 Family planning surveillance 934802134 Z30.09 Polycystic ovaries 89498 008 E28.2 Obesity 050787312 E66.9 [id number] Terrance Caicedo (SOFTWARE TEST ENGINEER) [address] [place] [address] [phone] 05/13/2016 11:59:45 05/13/2016 17:16:11 Polycystic ovaries 21066304 E28.2 25 year old nulligravi da lizabeth g of heavy irregular vaginal bleeding despite taking LoLoestrin OCP's for cycle control. Also taking multiple meds for control of PCOS symptomato logy. Discussed PCOS foe 20 minutes and plan to change OCP's from LoLoEstrin to Cryselle tabs using 4-4-3-2-1 regimine to stop the bleeding. to continue with one tab daily into second package. [id number] Blas Caicedo (SOFTWARE TEST ENGINEER) [address] [place] [address] [id number] 05/05/2018 15:19:32 05/05/2018 17:23:56 Family planning surveillance 551935008 Z30.09 Desires oral BCP to help regulate bleeding. Rx for Lo Loestrin given. Reschedule d annual WWE due to patient being on her period. Polycystic ovaries 67219 008 E28.2 Taking Metformin x 2000mg daily, prescribed by PCP. Impaired g lucose tolerance 4557408 R73.02 Risk of ex posure to communicable disease 478730749 Z20.9 Morbid obesity 285747201 E66.01 Taking Phentermin e prescribed by PCP. No interest in weight loss surgery at this time. She states Oh I think I can do it on my own. (BMI 62). History of depression 16 1430923 Z86.59 Taking Zoloft, 50mg, prescribed by PCP. Anxiety 96906998 F41.9 Taking Zoloft, 50mg, prescribed by PCP. [id number] PENG CARVALHO (Adult Med) [address] [place] [address] [phone] 04/23/2022 08:38:52 04/24/2022 09:43:56 Polycystic ovaries 71835888 E28.2 Patient reports history of PCOS, has tried several medication s to help with menstrual cycle regulation with no relief. Gynecologi c examination 14378415 Z01.419 Here to establish OBGYN care, Used to follow with Dr. Maribel BONE 03/09/2022L ast pap smear 2015, she reports no abnormal results in the past. She reports history of PCOS with irregular cycles. Has tried metformin and other OCPs in the past to try and regulate with no relief. No history of breast issues in the past. - pap performed today and sent for testing Venereal d isease screening 694571100 Z11.3 Nuswab sample collected today and sent for testing Menorrhagia 618612862 N9 2.0 Patient was diagnosed with PCOS several years ago and says she is still experienci ng irregular cycles, sometimes not occurring for 4-5 months and then sometimes gets continuous bleeding for 27-35 straight days. When her cycles do occur they are typically very painful. She was interested in trying to get in the past but now she is less interested in that and more interested in trying to figure out how to regulate her cycles better or get rid of them entirely. - patient is interested in trying mirena IUD- provided patient with menorrhagi a informatio n Contraception care 03837 5005 Z30.40 Patient is interested in trying mirena IUD in hopes of better regulating her menstrual cycles or minimizing heavy menstrual bleeding- discussed Mirena in depth with patient today, placed order- f/u in 2 weeks for insertion, take tylenol or IBU 30 minutes before visit Health Concerns Section Related Observation LastModified by Organization Detai ls LastModified Time None Recorded Concern Status LastModified by Organization Details LastModified Time None Recorded Advance Directives Directive N: Payers Encounter Date Sequence Insurance Name Policy Number Policy Witt Covered Member ID Witt Member ID Guarantor Name 12/05/2014 1 [place] [employer] Elena Minor [id number] [facility] 04/23/2016 1 [facility] (MEDICAID HMO) Elena Minor [id number] [facility] 05/13/2016 1 [facility] (MEDICAID HMO) Elena Minor [id number] [facility] 05/05/2018 1 [place] [id number] [facility] [id number] [facility] Notes Date Note Type Note Provider Name and Address Organization Details Recorded Time 04/23/2016 text/html Annual GYNReport ed bypatient.History:no gynecologic complaints; no change in interval history Menstrual cycle:Normal menses Urinary symptoms:No hematuria; No incontinence Vulva:No genital lesion Vagina:Normal vaginal discharge Breast:No breast pain; No breast lump; No nipple discharge Current Contraception:Satisfi ed with current contraception Sexual complaints:No sexual complaints; No pain during intercourse; Normal libido Menopausal Symptoms:No menopausal symptoms; Normal vaginal lubrication Psychological symptoms:No depression; No anxiety; No PMDD Preventive measures:Encourage self breast examination; Encourage regular exercise; Encourage no tobacco use; Encourage regular mammograms starting age 40; Followed with Q3 year pap smear and high risk HPV typing SANDIP Castañeda SIAlexander 04/25/2016 07:11:24 05/05/2018 text/html Irregular PeriodsReported bypatient.Onset/Timin g:present cycle Quality:Light to heavy, now moderate bleeding. One day used 30+ pads; patient admits menses is similar to periods she has had before. 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 Patient reports irregular menses and bleeding (light to heavy) for 2.5 weeks - one day used 30+ pads. Recently started on Metformin and Phentermine by PCP, patient admits to having 2 regular periods prior to this episode. Now, her period is similar to past menstruation. Will re-schedule annual WWE due to patient being on period. Desires oral BCP to help regulate bleeding.Discussed options for weight loss while here in office, BMI 60.9. She endorses 22lb weight loss. Patient prefers to continue weight loss medication and does not want information regarding weight loss surgery.PHQ is 14 and has recently begun taking Zoloft. SANDIP Castañeda SIAlexander 05/05/2018 18:39:32 04/23/2022 text/html Elena is a 31 y/o female with a PMHX of PCOS, anxiety/depression, HLP presents to the clinic today to establish SOFTWARE TEST ENGINEER care. Patient was diagnosed with PCOS several years ago and has tried metformin, several different medications including OCPs to help with menstrual cycle regulation with no relief. Patient says she is still experiencing irregular cycles, sometimes not occurring for 4-5 months and then sometimes gets continuous bleeding for 27-35 straight days. When her cycles do occur they are typically very painful. She was interested in trying to get in the past but now she is less interested in that and more interested in trying to figure out how to regulate her cycles better or get rid of them entirely. Her last Pap was in 2018 and she says all her results have been normal. She denies history of blood clots, chest pain, SOB, weakness. PENG CARVALHO Attn: Accounting[address] [place], [address], [place] [facility] 04/23/2022 21:46:28 OBGyn Episode No OBEpisode recorded.
--- OUTSIDE RECORDS SUMMARY | 2025-03-19 11:06 | XMS_ITS | Data Portability ---
Author Organization [facility] Address [address] [place] [address] [place] [address] Care Team Providers Care Ampoule Filler Name Role Phone TIMO BUSTOS Primary Care Provider Assessment Encounter Date Assessment Date Assessment LastModified by Organization Details LastModified Time 02/23/2025 02/23/2025 Patient is ___weeks . Discussed plan. [email or web address] Not available 02/23/2025 16:48:41 03/03/2025 03/03/2025 Patient is ___weeks . Discussed plan. Not available 03/03/2025 17:19:47 03/09/2025 03/09/2025 Patient is ___weeks . Discussed plan. Not available 03/09/2025 16:16:58 03/16/2025 03/16/2025 Patient is ___weeks . Discussed plan. Not available 03/16/2025 16:55:21 Plan of Treatment Reminders Order Date Submit Date Provider Last Modified By Organization Details Last Modified Time Details Appointments SURG CSection 2024 07:30A Alexandra BUSTOS MD Not available Not available Not available OB ROUTINE 2024 03:00P Alexandra BUSTOS MD Not available Not available Not available Lab None recorded. Referral None recorded. Procedures None recorded. Surgeries None recorded. Imaging US, obstetric , follow-up 2024 025 [email or web address] [facility], [address], [address], [place], [address], 03/03/2025 17:22:04 Medication Orders None recorded. Patient TargetsNo targets recorded. Patient InstructionsNo instructions recorded. Reason for Referral None Reported. Results Created Date Observation Date Name Description Value Unit Range Abnormal Flag Note LastModifiedBy Organization Detail LastModifiedTime 02/24/2002/23/2025 CULTU RE: GROUP B STREP SCREE N, REFLE X SUSCE PTIBI LITY result report SEE RESULT S BELOW Test: Cultu re: Group B Strep , Refle x Susce ptibi lity ([facility]/ [facility] ) Speci men Sourc e: Vagin a/Rec sachin Speci men Type: Vagin al/Re ctal Speci men Date: 1724 Resul t Date: 1411 Resul t Statu s: Final resul t Abnor mal: No Resul ting Lab: [facility] [address] [facility] [address] Tel: [phone] CULTU RE ----- ----- ----- --- No Group B strep isola dariusz at 2 days (bernard ctive broth enhan cemen t) Not Available [facility] (Lab) [address], [place], [address], 02/26/2025 15:18:34 02/04/20 25 02/03/2025 US, obste tric, follo w-up No observ ation record ed. [facility] [address], [place], [address], 02/03/2025 16:47:29 02/04/20 25 02/03/2025 US, obste tric, follo w-up No observ ation record ed. [email or web address], [place], [address], 02/08/2025 18:22:41 02/10/20 25 01/20/2025 non-s tress test No observ ation record ed. [email or web address] Not Available 2024 11:22:43 02/10/20 non-s tress test No observ ation record ed. [email or web address] Not Available 2024 11:22:43 02/11/2002/10/2025 imagi ng/di agnos tic resul t No observ ation record ed. [address] [address], [place], [address], 02/11/2025 18:16:05 02/11/2002/10/2025 US, obste tric, bioph ysica l profi le No observ ation record ed. [address] [address], [place], [address], 02/11/2025 13:59:39 02/16/2002/15/2025 non-s tress test No observ ation record ed. [address] [address], [place], [address], 02/16/2025 10:40:15 02/16/20 25 02/15/2025 US, obste tric, follo w-up No observ ation record ed. [address] [address], [place], [address], 02/16/2025 22:43:18 02/23/20 25 02/22/2025 US, obste tric, follo w-up No observ ation record ed. [address] [address], [place], [address], 02/24/2025 19:54:12 02/23/2002/22/2025 non-s tress test No observ ation record ed. [email or web address] [address], [place], [address], 03/18/2025 11:23:12 03/01/20 25 03/01/2025 US, obste tric, follo w-up No observ ation record ed. [address], [address], 03/01/2025 23:16:10 03/03/20 25 03/03/2025 US, obste tric, follo w-up No observ ation record ed. [email or web address] [facility], [place], [address], 03/03/2025 17:17:26 03/03/20 25 03/03/2025 US, obste tric, follo w-up No observ ation record ed. [email or web address] [address], [place], [address], 03/09/2025 10:02:43 03/08/20 25 03/08/2025 non-s tress test No observ ation record ed. [email or web address] [address], [place], [address], 03/17/2025 10:08:28 03/08/20 25 03/08/2025 US, obste tric, bioph ysica l profi le No observ ation record ed. [email or web address] [address] [address], [place], [address], 03/09/2025 16:29:10 03/15/20 25 03/15/2025 non-s tress test No observ ation record ed. [email or web address] [address] [facility], [place], [address], 03/18/2025 11:23:12 03/15/20 25 03/15/2025 US, obste tric, bioph ysica l profi le + non-s tress test No observ ation record ed. [email or web address] [address], [place], [address], 03/15/2025 22:16:57 03/17/20 25 03/17/2025 imagi ng/di agnos tic resul t No observ ation record ed. [address] [address], [place], [address], 03/17/2025 10:38:40 Result Notes None recorded. Problems Name Problem SNOMED Code Status Onset Date Resolution Date Notes Provider Name and Address Organization Details Recorded Time Polycysti c ovary syndrome 043071051 Active Timo Bustos MD [address], [place], [address], [facility] 4 12:55:05 86441801 Active 2023 Eva Calderón null, [facility] 4 12:24:45 Polycysti c ovary syndrome 975949566 Active Timo Bustos MD [address], [place], [address], [facility] 4 12:55:05 Obesity 674058875 Active Class 3 BMI >50 testing @34wks Anesthesi a consult w pre admit Veronika Summers nate, [facility] 5 13:17:45 Marginal insertion of umbilical cord 82929021 Active Timo Bustos MD [address], [place], [address], [facility] 4 20:29:01 Gestation al diabetes mellitus 18786326 Active BS qid , serial growth 5u lantus @ bedtime - testing@ LD growth us here Veronika Summers nate, [facility] 5 13:30:22 Gestation al diabetes mellitus 60990666 Active BS qid , serial growth 5u lantus @ bedtime - testing@ LD growth us here Veronika Summers nate, [facility] 5 13:30:22 Elective section Active Timo Bustos MD [address], [place], [address], [facility] 5 17:38:10 Problem Notes None recorded. Procedures Surgical History Date Name Laterality Status Provider Name and Address Organization Details Recorded Time 08/25/2024 Date of Last Pap Smear completed Luci Rodriguez [facility] 08/25/2024 11:42:27 11/24/1999 tonsilecto my/adenoid s completed Luci Rodriguez [facility] 08/25/2024 11:45:21 tonsilecto my/adenoid s completed Evita Arana [facility] 10/15/2024 15:40:20 Imaging Results Imaging Date Name Status LastModified by Organiz ation Details LastModified Time 02/03/2025 US, obstetric, follow-up completed [facility] [address], [place], [address], 02/03/2025 16:47:29 02/03/2025 US, obstetric, follow-up completed [address], [place] [facility] [place], [address], 02/08/2025 18:22:41 01/20/2025 non-stress test completed Informati on not available 02/09/2025 11:22:43 02/09/2025 non-stress test completed Informati on not available 02/09/2025 11:22:43 02/10/2025 imaging/diagnos tic result completed [address] [place] [address], [address], 02/11/2025 18:16:05 02/10/2025 US, obstetric, biophysical profile completed [address], [address], 02/11/2025 13:59:39 02/15/2025 non-stress test completed [address] [place] [address], [address], 02/16/2025 10:40:15 02/15/2025 US, obstetric, follow-up completed [address] [address], [place], [address], 02/16/2025 22:43:18 02/22/2025 US, obstetric, follow-up completed [address] [address], [place], [address], 02/24/2025 19:54:12 02/22/2025 non-stress test active [address] [address], [place], [address], 03/18/2025 11:23:12 03/01/2025 US, obstetric, follow-up completed [address] [address], [place], [address], 03/01/2025 23:16:10 03/03/2025 US, obstetric, follow-up completed [email or web address], [place], [address], 03/03/2025 17:17:26 03/03/2025 US, obstetric, follow-up completed [address], [place], [address], 03/09/2025 10:02:43 03/08/2025 non-stress test completed [address], [address], 03/17/2025 10:08:28 03/08/2025 US, obstetric, biophysical profile completed [address] [address], [place], [address], 03/09/2025 16:29:10 03/15/2025 non-stress test active [address] [address], [place], [address], 03/18/2025 11:23:12 03/15/2025 US, obstetric, biophysical profile + non-stress test completed [address] [place], [address], 03/15/2025 22:16:57 03/17/2025 imaging/diagnos tic result active [facility] [address], [place], [address], 03/17/2025 10:38:40 Procedure Notes None recorded. Medical Equipment None Reported. Allergies Allergen ID Allergen Name Allergen Category Reaction Reaction Severity Criticality Documentation Date Start Date Code Code System Note Provider Name and Address Organization Details Recorded Time 43543 codeine medicatio n vomiting severe Not available 08/25/2024 2670 RxNorm Luci Rodriguez [facility] 4 11:41:40 39505 acetamino phen / codeine medicatio n vomiting severe Not available 10/15/2024 10737 9 RxNorm Evita sullivan [facility] 4 15:40:19 Medications Name Sig Start Date Stop Date Status Note LastModified by Organization Details LastModified Time cyclobenzap rine 10 mg tablet TAKE 1 TABLET ORAL ROUTE EVERY 8 HOURS NEEDED CUT IN HALF IF TOO SEDATING 08/25 completed Not Available Not Available Not Available FreeStyle Lancets 28 gauge USE TO TEST BLOOD SUGAR 4 TIMES A DAY *FASTING AND 1 HOUR POST-MEAL S (BREAKFAS T, LUNCH, SUPPER)* active Not Available Not Available No t Available ondansetron HCl 4 mg tablet Take 1 tablet every 4-6 hours by oral route as needed. 2023 active Not Available Not Available Not Avai lable Lantus U-100 Insulin 100 unit/mL subcutaneou s solution INJECT 5 UNITS UNDER THE SKIN AT BEDTIME active Not Available Not Available No t Available amoxicillin 875 mg tablet TAKE 1 TABLET BY MOUTH EVERY 12 HOURS X 10 DAYS 08/25 completed Not Available Not Available Not Available ibuprofen 600 mg tablet TAKE 1 TABLET ORAL ROUTE EVERY 6 HOURS NEEDED TAKE WITH FOOD 08/25 completed Not Available Not Available Not Available ondansetron 4 mg disintegrat ing tablet DISSOLVE 1 TABLET ON THE TONGUE EVERY 4-6 HOURS NEEDED active Not Available Not Available No t Available active Not Available Not Avai lable Not Available FreeStyle Lite Meter kit USE DIRECTED TO TEST BLOOD SUGAR 4 TIMES A DAY active Not Available Not Available No t Available FreeStyle Lite Strips USE TO CHECK BLOOD SUGAR 4 TIMES A DAY *FASTING AND 1 HOUR POST-MEAL S (BREAKFAS T, LUNCH, SUPPER)* active Not Available Not Available No t Available BD Insulin Syringe Ultra-Fine 0.3 mL 31 gauge x 5/16 USE WITH INSULIN DIRECTED active Not Available Not Available No t Available Vitals Date Recorded Body weight Body mass index (BMI) Body height Systolic blood pressure Diastolic blood pressure Provider Name and Address Organization Details Last Updated DateTime 02/23/2025 021148.5 93527 g 61.9 kg/m2 167.01 cm 136 mm[Hg] 83 mm[Hg] Diamante Godfreyney [facility] 16:49:18 Date Recorded Body weight Systolic blood pressure Diastolic blood pressure Provider Name and Address Organization Details Last Updated DateTime 03/03/2025 912175.692 97 g 142 mm[Hg] 85 mm[Hg] [facility] 03/03/2025 17:20:23 Date Recorded Body height Body mass index (BMI) Body weight Systolic blood pressure Diastolic blood pressure Provider Name and Address Organization Details Last Updated DateTime 03/09/2025 167.01 cm 62.9 kg/m2 026934.2 5 g 132 mm[Hg] 80 mm[Hg] [facility] 16:17:43 Date Recorded Body weight Systolic blood pressure Diastolic blood pressure Provider Name and Address Organization Details Last Updated DateTime 03/16/2025 265653.024 3 g 154 mm[Hg] 85 mm[Hg] [facility] 03/16/2025 16:56:42 Social History Question Answer Notes LastModified by Organizat ion Details LastModified Time Tobacco Smoking Status Current Every Day Smoker Luci sullivan, [facility] 08/25/2024 11:44:34 Do You Have An Advance Directive? No [email or web address] Information not available 10/15/2024 What Is Your Level Of Alcohol Consumption? None [email or web address] Information not available 08/25/2024 If You Are , What Was Your Level Of Alcohol Consumption Prior To ? Occasional [email or web address] Information not available 08/25/2024 Are You Blind Or Do You Have Difficulty Seeing? No [email or web address] Information not available 08/25/2024 What Is Your Level Of Caffeine Consumption? Moderate [email or web address] Information not available 08/25/2024 How Much Tobacco Do You Chew? None [email or web address] Information not available 08/25/2024 In The 14 Days Before Symptom Onset, Have You Had Close Contact With A Laboratory-confir med COVID-19 While That Case Was Ill? No [email or web address] Information not available 08/25/2024 In The 14 Days Before Symptom Onset, Have You Had Close Contact With A Person Who Is Under Investigation For COVID-19 While That Person Was Ill? No [email or web address] Information not available 08/25/2024 Have You Been To An Area Known To Be High Risk For COVID-19? No [email or web address] Information not available 08/25/2024 Are You Deaf Or Do You Have Serious Difficulty Hearing? No [email or web address] Information not available 08/25/2024 What Type Of Diet Are You Following? REGULAR [email or web address] Information not available 08/25/2024 Do You Or Have You Ever Used E-cigarettes Or Vape? Current User Of Electronic Cigarettes [email or web address] Information not available 08/25/2024 What Is The Highest Grade Or Level Of School You Have Completed Or The Highest Degree You Have Received? OQ20157-2 [email or web address] Information not available 08/25/2024 What Is Your Occupation? [employer] Paral[employer] [email or web address] Information not available 08/25/2024 Are There Any Guns Present In Your Home? No [email or web address] Information not available 08/25/2024 Do You Use Protection During Sex? No [email or web address] Information not available 08/25/2024 Do You Use Your Seat Belt Or Car Seat Routinely? Yes [email or web address] Information not available 08/25/2024 Do You Have Smoke And Carbon Monoxide Detectors In Your Home? Yes [email or web address] Information not available 08/25/2024 How Much Tobacco Do You Smoke? No [email or web address] Information not available 08/25/2024 Do You Feel Stressed (tense, Restless, Nervous, Or Anxious, Or Unable To Sleep At Night)? YC95976-6 [email or web address] Information not available 10/15/2024 Do You Use Any Illicit Or Recreational Drugs? No [email or web address] Information not available 10/15/2024 Do You Use Sunscreen Routinely? No [email or web address] Information not available 08/25/2024 Has Tobacco Cessation Counseling Been Provided? Yes [email or web address] Information not available 08/25/2024 On What Date Was Tobacco Cessation Counseling Provided? 08/25/2024 [email or web address] Information not available 08/25/2024 Have You Used IV Drugs? No [email or web address] Information not available 08/25/2024 Do You Or Have You Ever Used Any Other Forms Of Tobacco Or Nicotine? Yes Information not available 08/25/2024 Sex: Unknown Functional Status Question Answer Note LastModified by Organizat ion Details LastModified Time Do you have difficulty walking or climbing stairs? No Information not available 08/25/2024 Are you able to walk? YESWOREST [email or web address] Information not available 08/25/2024 Are you able to care for yourself? Yes [email or web address] Information not available 08/25/2024 Do you have difficulty dressing or bathing? No [email or web address] Information not available 08/25/2024 What is your exercise level? Occasional [email or web address] Information not available 08/25/2024 Mental Status None recorded. Family History Relationship Description Onset Age of this Age Resolved Age Notes LastModified by Organization Details LastModified Time Mother Anxiety disorder [email or web address] Not available 2024 16:38:03 Mother Disorder of thyroid gland [email or web address] Not available 2024 16:38:03 Mother Heart disease [email or web address] Not available 2024 16:38:03 Father Diabetes mellitus [email or web address] Not available 08/25 11:41:40 Medical History Condition Response Allergies (Food, seasonal, environmental ) N Other N Breast Cancer N Drug/Latex Allergies/Reactions N Blood Transfusion N Dermatologic Disorders N Lung Disease N Defects or Inherited Disease N Breast Problem N Gestational Diabetes N Hematologic disorders N Anesthesia Complications N History of STI N Deep Vein Thrombosis N Polycystic ovary syndrome Y Anxiety Disorder N Autoimmune disease N Arthritis N Infertility N Polyps N Acid Reflux (GERD) N History of abnormal pap N Cancer N Stroke N Varicosities N Neurologic/Epilepsy N Endometriosis N High Cholesterol N Headaches N Fibromyalgia N Kidney Disease N Heart Problems N Kidney or Bladder Problems N Thyroid Problems N GI Problems N Eating Disorder N Anemia N Art (IVF or FET) N Psychiatric Illness N Ovarian Cancer N Diabetes N Pulmonary (TB, Asthma) N Hepatitis/Liver Disease N No Past Medical History Y Eczema N Urinary Tract Infection N Abuse/Domestic Violence N Asthma N Trauma/Violence N Depression/ depression N Heart Disease N Pre-Eclampsia N Hypertension N Osteoporosis N Thrombophilias N Gynecological History Statement/Question Response Abnormal Pap N Date of Last Mammogram Date of LMP 05/14/2024 Was last menstrual period normal Y STIs/STDs N Duration of Flow (days) 5 Current Control Method Date of Last Colonoscopy Frequency of Cycle (Q days) 90 Sexually Active? Y Menses Monthly N Date of DEXA bone scan Age of first menstrual cycle 12 Date of Last Pap Smear 08/25/2024 Sexual Problems? N LMP Approximate Obstetrics History GPAL:G 1 P 0 0 0 0 Type Value Living 0 Total 1 Past Encounters Encounter ID Performer Location Encounter Start Date Encounter Closed Date Diagnosis/Indication Diagnosis SNOMED-CT Code Diagnosis ICD10 Code Diagnosis Note [id number] [facility] [address],[place] [address] 08/25/2024 10:02:47 08/25/2024 10:41:54 screening 996220784 Z36.87 Z3A.09 [id number] Cheryl Otoole [facility] [address],[place] [address] 08/25/2024 10:07:18 08/25/2024 14:19:38 Amenorrhea 45759636 N91.2 Z32.01 [id number] [facility] [address],[place] [address] 09/16/2024 15:25:22 09/16/2024 16:38:25 [id number] [facility] [address],[place] [address] 09/17/2024 11:15:27 09/20/2024 10:13:34 screening 571216123 Z36.82 Z3A.12 [id number] Timo Bustos MD [facility] [address],[place] [address] 09/17/2024 11:15:43 09/20/2024 10:13:46 Routine care 515025336 Z34.90 [id number] YANETH SCHULTZ MD [facility] [address],[place] [address] 10/15/2024 15:27:00 10/15/2024 16:34:51 Maternal obesity complicating , childbirth and the puerperium, antepartum 7118063313 07 O99.212 Prediabetes 606120829 R7 3.03 Gestation period, 16 weeks 92387272 Z3A.16 [id number] [facility] [address],[place] [address] 11/11/2024 10:00:23 11/11/2024 11:26:11 screening for malformation 376983604 Z36.3 O99.210 Z3A.20 [id number] Timo Bustos MD [facility] [address],[place] [address] 11/11/2024 10:00:51 11/11/2024 12:11:25 Routine care 504638109 Z34.90 [id number] [facility] [address],[place] [address] 12/09/2024 14:52:07 12/09/2024 15:55:36 Maternal obesity complicating , childbirth and the puerperium, antepartum 3314491659 07 O99.212 Z36.2 O43.122 Z3A.24 [id number] Timo Bustos MD [facility] [address],[place] [address] 12/09/2024 14:52:32 12/09/2024 17:14:42 Routine care 656144969 Z34.90 [id number] Aide Mendez [facility] [address],[place] [address] 01/06/2025 15:44:13 01/06/2025 16:43:45 screening 372991119 Z36.2 Z3A.28 [id number] Timo Bustos MD [facility] [address],[place] [address] 01/06/2025 15:53:47 01/06/2025 16:56:17 Routine care 987630976 Z34.90 [id number] YANETH SCHULTZ MD [facility] [address],[place] [address] 01/20/2025 15:02:59 01/20/2025 16:22:09 Maternal obesity complicating , childbirth and the puerperium, antepartum 0052935373 07 O99.212 Marginal i nsertion of umbilical cord 92556948 O43.129 Gestation period, 30 weeks 12180544 Z3A.30 [id number] [facility] [address],[place] [address] 02/03/2025 15:52:55 02/03/2025 16:30:46 Maternal obesity complicating , childbirth and the puerperium, antepartum 3002979620 07 O99.212 O43.122 O24.410 Z3A.32 [id number] Timo Bustos MD [facility] [address],[place] [address] 02/03/2025 15:54:16 02/07/2025 03:34:58 Routine care 125672438 Z34.90 [id number] Timo Bustos MD [facility] [address],[place] [address] 02/09/2025 15:26:55 02/09/2025 16:18:23 Delivery by elective section 608486737 Z37.9 [id number] Timo Bustos MD [facility] [address],[place] [address] 02/16/2025 16:37:27 02/17/2025 07:32:50 Routine care 983805065 Z34.90 [id number] Timo Bustos MD [facility] [address],[place] [address] 02/23/2025 16:30:23 02/23/2025 17:33:47 Routine care 563590837 Z34.90 [id number] Aide Mendez [facility] [address],[place] [address] 03/03/2025 16:34:27 03/03/2025 17:18:32 Placental condition affecting management of mother 411928876 O43.103 O24.414 O99.213 Z3A.36 [id number] Timo Bustos MD [facility] [address],[place] [address] 03/03/2025 16:34:55 03/03/2025 17:51:13 Routine care 969405685 Z34.90 [id number] Timo Bustos MD [facility] [address],[place] [address] 03/09/2025 16:08:58 03/09/2025 16:45:16 Routine care 223550734 Z34.90 [id number] Timo Bustos MD [facility] [address] [address] 03/16/2025 16:37:18 03/16/2025 17:18:17 Third trimester 35946322 Z34.03 Health Concerns Section Related Observation LastModified by Organization Detai ls LastModified Time None Recorded Concern Status LastModified by Organization Details LastModified Time None Recorded Advance Directives Directive N: Payers Encounter Date Sequence Insurance Name Policy Number Policy Witt Covered Member ID Witt Member ID Guarantor Name 02/23/2025 1 [employer] (PPO) Formerly [facility] [id number] [facility] 03/03/2025 1 [employer] (PPO) Formerly [facility] [id number] [facility] 03/03/2025 1 [employer] (PPO) JACQUELINE [facility] [id number] Elena Cordon [facility] 03/09/2025 1 [employer] (PPO) JACQUELINE [facility] [id number] Elena Cordon [facility] 03/16/2025 1 [employer] (PPO) JACQUELINE [facility] [id number] [facility] OBGyn Episode Ob Episode Information Episode Created Date Number of Fetuses Patient Bloodtype Patient rh Status Prepregnancy Weight lbs Domestic Partner Domestic Partner Phone Father Name Retread Builder Status 09/17/20 24 1 O Positive 345 Ezekiel OPEN Fetus Data First Name Last Name Admitted to NICU Weight (g) Sex Living Outcome Pediatric Complications Fetus ID Race Codes Race Delivery Type [id number] Problems Problem Notes pyelectasis Problem Name Start Date End Date Resolution Snomed Code Not e Marginal insertion of umbilical cord [id number] Gestational diabetes mellitus [id number] BS qid , serial growth 5u lantus @ bedtime - testing@ LD growth us here Polycystic ovary syndrome [id number] Obesity [id number] Class 3 BM I >50antenatal testing @[id number] consult w pre admit Elective section [id number] Caleb Calculation Initial Caleb Date Initial Exam Date Initial Exam Provider Initial Ultrasound Date Last Menstrual Period Date Ultra Sound Weeks Gestation 09/17/2024 08/25/2024 9 Eighteen To Twenty Week Caleb Update Ultra Sound Date Fundal Height At Umbil Quickening Date Ultra Sound Latest Weeks Gestation Final Caleb Confirmed By Final Caleb Confirmed Date Final Caleb Date Ultra Sound Latest Days Gestation 0 [email or web address] 09/20/2024 03/27/20 25 0 Pre-hank Flowsheet Flowsheet Date 09/17/2024 Pang Score Blood Edema Fundus Height Fundus Units Glucose Ketones Leukocytes Nitrite Labor Signs Protein Cervic Dilation Cervic Effacement Cervic Station Type Weight in lbs Pre/Post Dialysis Refused BP Diastolic BP Location Tested BP Systolic BP Type Fetus Heart Rate Present Fetus Movement Comments Flowsheet Date 09/17/2024 Pang Score Blood Edema Fundus Height Fundus Units Glucose Ketones Leukocytes Nitrite Labor Signs Protein Cervic Dilation Cervic Effacement Cervic Station Type Weight in lbs Pre/Post Dialysis Refused Weight 345.093449796436 BP Diastolic BP Location Tested BP Systolic BP Type 78 L arm 117 sitting Fetus Heart Rate Present A 155 Fetus Movement A No Comments this patient is a 33-year-ol d primiparous female at 12 weeks' gestation who presents for initial care. She has a history of term vaginal births. Her medical, surgical, obstetric history is unremarkable. She is vaccinated. She was given precautions recommendations for . We talked about vaccines in . Talked about care in detail. She is having genetic testing. She had a normal 12 week ultrasound. To begin routine care. Flowsheet Date 10/15/2024 Pang Score Blood Edema Fundus Height Fundus Units Glucose Ketones Leukocytes Nitrite Labor Signs Protein Cervic Dilation Cervic Effacement Cervic Station neg none none trace Type Weight in lbs Pre/Post Dialysis Refused Weight 346.910671075435 BP Diastolic BP Location Tested BP Systolic BP Type 75 L arm 116 sitting Fetus Heart Rate Present Fetus Movement A Yes Comments Patient c/o of back pain. Di scussed conservative measures. No cramping or bleeding. Feeling some movement. Discussed early 1h GCT next visit due to prediabetic A1c. LR female NIPT! RTC4 weeks for anatomy US and visit. Flowsheet Date 11/11/2024 Pang Score Blood Edema Fundus Height Fundus Units Glucose Ketones Leukocytes Nitrite Labor Signs Protein Cervic Dilation Cervic Effacement Cervic Station Type Weight in lbs Pre/Post Dialysis Refused BP Diastolic BP Location Tested BP Systolic BP Type Fetus Heart Rate Present Fetus Movement Comments Flowsheet Date 11/11/2024 Pang Score Blood Edema Fundus Height Fundus Units Glucose Ketones Leukocytes Nitrite Labor Signs Protein Cervic Dilation Cervic Effacement Cervic Station 20 cm Type Weight in lbs Pre/Post Dialysis Refused 351.621815717393 BP Diastolic BP Location Tested BP Systolic BP Type 82 L arm 126 sitting Fetus Heart Rate Present A 145 Fetus Movement A Yes Comments no complaints, no problems, routine care, no contractions, no vaginal bleeding, no loss of fluid, no cramping incomplete anatomy ultrasound. Repeat in 4 weeks Flowsheet Date 12/09/2024 Pang Score Blood Edema Fundus Height Fundus Units Glucose Ketones Leukocytes Nitrite Labor Signs Protein Cervic Dilation Cervic Effacement Cervic Station Type Weight in lbs Pre/Post Dialysis Refused BP Diastolic BP Location Tested BP Systolic BP Type Fetus Heart Rate Present Fetus Movement Comments Flowsheet Date 12/09/2024 Pang Score Blood Edema Fundus Height Fundus Units Glucose Ketones Leukocytes Nitrite Labor Signs Protein Cervic Dilation Cervic Effacement Cervic Station Type Weight in lbs Pre/Post Dialysis Refused 353.792570908498 BP Diastolic BP Location Tested BP Systolic BP Type 75 L arm 111 sitting Fetus Heart Rate Present A 145 Fetus Movement A Yes Comments no complaints, no problems, routine care, no contractions, no vaginal bleeding, no loss of fluid, no cramping Flowsheet Date 01/06/2025 Pang Score Blood Edema Fundus Height Fundus Units Glucose Ketones Leukocytes Nitrite Labor Signs Protein Cervic Dilation Cervic Effacement Cervic Station Type Weight in lbs Pre/Post Dialysis Refused BP Diastolic BP Location Tested BP Systolic BP Type Fetus Heart Rate Present Fetus Movement Comments Flowsheet Date 01/06/2025 Pang Score Blood Edema Fundus Height Fundus Units Glucose Ketones Leukocytes Nitrite Labor Signs Protein Cervic Dilation Cervic Effacement Cervic Station Type Weight in lbs Pre/Post Dialysis Refused 371.045537072012 BP Diastolic BP Location Tested BP Systolic BP Type 86 L arm 133 sitting Fetus Heart Rate Present A 145 Fetus Movement A Yes Comments no complaints, no problems, routine care, no contractions, no vaginal bleeding, no loss of fluid, no cramping Flowsheet Date 01/20/2025 Pang Score Blood Edema Fundus Height Fundus Units Glucose Ketones Leukocytes Nitrite Labor Signs Protein Cervic Dilation Cervic Effacement Cervic Station neg none Type Weight in lbs Pre/Post Dialysis Refused 371.664636714869 BP Diastolic BP Location Tested BP Systolic BP Type 78 L arm 123 sitting Fetus Heart Rate Present A 155 Fetus Movement A Yes Comments Patient c/o Dalton Dolan an d swelling in feet. Good movement. No bleeding or cramping. Having left sided leg numbness with standing too long, resolves with position change. Repeat growth US next visit for MCI. Discussed tdap vaccine. RTC 2 weeks. Flowsheet Date 02/03/2025 Pang Score Blood Edema Fundus Height Fundus Units Glucose Ketones Leukocytes Nitrite Labor Signs Protein Cervic Dilation Cervic Effacement Cervic Station Type Weight in lbs Pre/Post Dialysis Refused BP Diastolic BP Location Tested BP Systolic BP Type Fetus Heart Rate Present Fetus Movement Comments Flowsheet Date 02/03/2025 Pang Score Blood Edema Fundus Height Fundus Units Glucose Ketones Leukocytes Nitrite Labor Signs Protein Cervic Dilation Cervic Effacement Cervic Station Type Weight in lbs Pre/Post Dialysis Refused 369.542456424236 BP Diastolic BP Location Tested BP Systolic BP Type 80 L arm 126 sitting Fetus Heart Rate Present Fetus Movement A Yes Comments no complaints, no problems, routine care, no contractions, no vaginal bleeding, no loss of fluid, no cramping. reviewed blood sugars Flowsheet Date 02/09/2025 Pang Score Blood Edema Fundus Height Fundus Units Glucose Ketones Leukocytes Nitrite Labor Signs Protein Cervic Dilation Cervic Effacement Cervic Station Type Weight in lbs Pre/Post Dialysis Refused 378.417751584091 BP Diastolic BP Location Tested BP Systolic BP Type 84 L arm 137 sitting Fetus Heart Rate Present A 156 Present Fetus Movement A Yes Comments no complaints, no problems, routine care, no contractions, no vaginal bleeding, no loss of fluid, no cramping discussed delivery, patient and mother of patient strongly want elective . She is a class 4 obesity patient. She has gestational diabetes. It is insulin controlled. High-risk for macrosomia and dysfunctional labor. To schedule Flowsheet Date 02/16/2025 Pang Score Blood Edema Fundus Height Fundus Units Glucose Ketones Leukocytes Nitrite Labor Signs Protein Cervic Dilation Cervic Effacement Cervic Station Type Weight in lbs Pre/Post Dialysis Refused Weight 384.153627201000 BP Diastolic BP Location Tested BP Systolic BP Type 82 L arm 131 sitting Fetus Heart Rate Present A 140 Present Fetus Movement A Yes Comments very good glucose control, o ccasional high value postprandially. reassuring testing Flowsheet Date 02/23/2025 Pang Score Blood Edema Fundus Height Fundus Units Glucose Ketones Leukocytes Nitrite Labor Signs Protein Cervic Dilation Cervic Effacement Cervic Station Type Weight in lbs Pre/Post Dialysis Refused 380.394793955582 BP Diastolic BP Location Tested BP Systolic BP Type 83 L arm 136 sitting Fetus Heart Rate Present A 145 Fetus Movement A Yes Comments to start 5 units of NPH in t he am, testing done yesterday. No complaints. GBS done. Cervix could not be reached, presenting part very high. Flowsheet Date 03/03/2025 Pang Score Blood Edema Fundus Height Fundus Units Glucose Ketones Leukocytes Nitrite Labor Signs Protein Cervic Dilation Cervic Effacement Cervic Station Type Weight in lbs Pre/Post Dialysis Refused BP Diastolic BP Location Tested BP Systolic BP Type Fetus Heart Rate Present Fetus Movement Comments Flowsheet Date 03/03/2025 Pang Score Blood Edema Fundus Height Fundus Units Glucose Ketones Leukocytes Nitrite Labor Signs Protein Cervic Dilation Cervic Effacement Cervic Station Type Weight in lbs Pre/Post Dialysis Refused 381.859964910608 BP Diastolic BP Location Tested BP Systolic BP Type 85 L arm 142 sitting Fetus Heart Rate Present A 145 Fetus Movement A Yes Comments no complaints, no problems, routine care, no contractions, no vaginal bleeding, no loss of fluid, no cramping Flowsheet Date 03/09/2025 Pang Score Blood Edema Fundus Height Fundus Units Glucose Ketones Leukocytes Nitrite Labor Signs Protein Cervic Dilation Cervic Effacement Cervic Station Type Weight in lbs Pre/Post Dialysis Refused Weight 387.007618606529 BP Diastolic BP Location Tested BP Systolic BP Type 80 L arm 132 sitting Fetus Heart Rate Present A 161 Present Fetus Movement A Yes Comments no complaints, no problems, routine care, no contractions, no vaginal bleeding, no loss of fluid, no cramping Flowsheet Date 03/16/2025 Pang Score Blood Edema Fundus Height Fundus Units Glucose Ketones Leukocytes Nitrite Labor Signs Protein Cervic Dilation Cervic Effacement Cervic Station Type Weight in lbs Pre/Post Dialysis Refused 390.932117735376 BP Diastolic BP Location Tested BP Systolic BP Type 85 L arm 154 sitting Fetus Heart Rate Present A 152 Present Fetus Movement A Yes Comments no complaints, no problems, routine care, no contractions, no vaginal bleeding, no loss of fluid, no cramping Menstrual History Last Menstrual Date Menses Monthly On Bcp Conception Prior Menses Frequency Hcg Plus Date Menarche Onset Age Delivery Information Delivery Date Delivery Type Labor Anesthesia Weeks Gestation Incision Type Labor Labor Length Hrs Delivered By Post Complications Tubal Sterilization Discharge Date Comments Discharge Information Feeding Method Contraceptive Method Maternal HG B and HCT Levels
[2025-03-19 12:07] LABS: Hematocrit 38.6 % (37.0-47.0); Hemoglobin 12.4 g/dL (12.0-15.0); Mean Corpuscular HGB Conc 32.1 g/dl (32-36); Mean Corpuscular Hemoglobin 29.1 pg (26-34); Mean Corpuscular Volume 90.6 fl (80-100); Mean Platelet Volume 10.9 fl (7.4-10.4); Platelet Count Result 212 k/mm3 (150-375); Red Blood Count 4.26 M/mm3 (4.2-5.4); Red Cell Distribution Width 13.2 % (11.5-14.5); White Blood Count 9.8 K/mm3 (4.5-10.0)
[2025-03-19 12:56] LABS: Syphilis IgG/IgM Antibody Negative (Negative)
== END 2025-03-19 11:02 | disposition home or self-care (01) ==
PROVIDERS: PCP Family Medicine; Visit Provider Obstetrics & Gynecology
DX: Z34.93 Encounter for supervision of normal pregnancy, unspecified, third trimester (principal); Z3A.00 Weeks of gestation of pregnancy not specified
CPT/HCPCS: 36415; 85027; 86593; 86850; 86900; 86901

== ENCOUNTER 2025-03-21 05:20 | Inpatient (IN) | payer OTHER, SELFPAY ==
[2025-03-21] VITALS (53 sets, daily range): BP systolic 66–138; BP diastolic 42–92; PULSE 54–162; RESP 14–18; TEMP 36.2–36.8; O2SAT 96–100; BMI 63.1
--- OUTSIDE RECORDS SUMMARY | 2025-03-21 01:44 | XMS_ITS | Data Portability ---
Author Organization [facility] Address [address] [place] [address] Care Team Providers Care Vice President Risk Management Name Role Phone TIMO BUSTOS Primary Care Provider [phone] Assessment Encounter Date Assessment Date Assessment LastModified by Organization Details LastModified Time 02/23/2025 02/23/2025 Patient is ___weeks . Discussed plan. Not available 02/23/2025 16:48:41 03/03/2025 03/03/2025 Patient [...] US, obstetric , follow-up 2024 025 [email or web address] [place], [address], [address], [place], [address], 03/03/2025 17:22:04 Medication Orders None recorded. Patient [...] t Abnor mal: No Resul ting Lab: [facility] [address] [facility] [address] Tel: [phone] CULTU RE ----- ----- ----- --- No Group B strep isola dariusz at 2 days (bernard ctive broth enhan cemen t) Not Available [facility] (Lab) [address] [facility], [place], [address], 02/26/2025 15:18:34 02/04/20 25 02/03/2025 US, obste tric, follo w-up No observ ation record ed. [facility] [address], [place], [address], 02/03/2025 16:47:29 02/04/20 25 02/03/2025 US, obste tric, follo w-up No observ ation record ed. [address], [place], [address], 02/08/2025 18:22:41 02/10/20 25 01/20/2025 non-s tress test No observ ation record ed. [email or web address] Not Available 2024 11:22:43 02/10/20 non-s tress test No observ ation record ed. [email or web address] Not Available 2024 11:22:43 02/11/2002/10/2025 imagi ng/di agnos tic resul t No observ ation record ed. [address] [address], [place], [address], 02/11/2025 18:16:05 02/11/2002/10/2025 US, obste tric, bioph ysica l profi le No observ ation record ed. [address] [address], [place], [address], 02/11/2025 13:59:39 02/16/2002/15/2025 non-s tress test No observ ation record ed. [address] [address], [place], [address], 02/16/2025 10:40:15 02/16/20 25 02/15/2025 US, obste tric, follo w-up No observ ation record ed. [address] [address], [place], [address], 02/16/2025 22:43:18 02/23/20 25 02/22/2025 US, obste tric, follo w-up No observ ation record ed. [address] [address], [place], [address], 02/24/2025 19:54:12 02/23/2002/22/2025 non-s tress test No observ ation record ed. [email or web address] [address], [place], [address], 03/18/2025 11:23:12 03/01/20 25 03/01/2025 US, obste tric, follo w-up No observ ation record ed. [address], [address], 03/01/2025 23:16:10 03/03/20 25 03/03/2025 US, obste tric, follo w-up No observ ation record ed. [email or web address], [place], [address], 03/03/2025 17:17:26 03/03/20 25 03/03/2025 US, obste tric, follo w-up No observ ation record ed. [email or web address] [address], [place], [address], 03/09/2025 10:02:43 03/08/20 25 03/08/2025 non-s tress test No observ ation record ed. [email or web address] [address], [place], [address], 03/17/2025 10:08:28 03/08/20 25 03/08/2025 US, obste tric, bioph ysica l profi le No observ ation record ed. [email or web address] [address], [place], [address], 03/09/2025 16:29:10 03/15/20 25 03/15/2025 non-s tress test No observ ation record ed. [email or web address] [address] [facility], [place], [address], 03/18/2025 11:23:12 03/15/20 25 03/15/2025 US, obste tric, bioph ysica l profi le + non-s tress test No observ ation record ed. [email or web address] [address], [place], [address], 03/15/2025 22:16:57 03/17/20 25 03/17/2025 imagi ng/di agnos tic resul t No observ ation record ed. [address] [address], [place], [address], 03/17/2025 10:38:40 Result Notes None recorded. Problems Name Problem SNOMED Code Status Onset Date Resolution Date Notes Provider Name and Address Organization Details Recorded Time Polycysti c ovary syndrome 271136912 Active Timo Bustos MD [address], [place], [address], [facility] 4 12:55:05 65027699 Active 2023 Eva Calderón null, [facility] 4 12:24:45 Polycysti c ovary syndrome 530921247 Active Timo Bustos MD [address], [place], [address], [facility] 4 12:55:05 Obesity 594016576 Active Class 3 BMI >50 testing @34wks Anesthesi a consult w pre admit Veronika Summers nate, [facility] 5 13:17:45 Marginal insertion of umbilical cord 56242948 Active Timo Bustos MD [address], [place], [address], [facility] 4 20:29:01 Gestation al diabetes mellitus 00325558 Active BS qid , serial growth 5u lantus @ bedtime - testing@ LD growth us here Veronika Summers nate, [facility] 5 13:30:22 Gestation al diabetes mellitus 51470192 Active BS qid , serial growth 5u lantus @ bedtime - testing@ LD growth us here Veronika Summers nate, [facility] 5 13:30:22 Elective section Active Timo Bustos MD [address], [place], [address], [facility] 5 17:38:10 Problem Notes None recorded. Procedures Surgical History Date Name Laterality Status Provider Name and Address Organization Details Recorded Time 08/25/2024 Date of Last Pap Smear completed Luci Rodriguez [facility] 08/25/2024 11:42:27 11/24/1999 tonsilecto my/adenoid s completed Luci Rodriguez [facility] 08/25/2024 11:45:21 tonsilecto my/adenoid s completed Evita Arana [facility] 10/15/2024 15:40:20 Imaging Results Imaging Date Name Status LastModified by Organiz ation Details LastModified Time 02/03/2025 US, obstetric, follow-up completed [facility] [address], [place], [address], 02/03/2025 16:47:29 02/03/2025 US, obstetric, follow-up completed [address], [place], [address], 02/08/2025 18:22:41 01/20/2025 non-stress test completed Informati on not available 02/09/2025 11:22:43 02/09/2025 non-stress test completed Informati on not available 02/09/2025 11:22:43 02/10/2025 imaging/diagnos tic result completed [address] [place] [address], [address], 02/11/2025 18:16:05 02/10/2025 US, obstetric, biophysical profile completed [address], [address], 02/11/2025 13:59:39 02/15/2025 non-stress test completed [address] [place] [address], [address], 02/16/2025 10:40:15 02/15/2025 US, obstetric, follow-up completed [address] [address], [place], [address], 02/16/2025 22:43:18 02/22/2025 US, obstetric, follow-up completed [address] [address], [place], [address], 02/24/2025 19:54:12 02/22/2025 non-stress test active [address] [address], [place], [address], 03/18/2025 11:23:12 03/01/2025 US, obstetric, follow-up completed [address] [address], [place], [address], 03/01/2025 23:16:10 03/03/2025 US, obstetric, follow-up completed [email or web address], [place], [address], 03/03/2025 17:17:26 03/03/2025 US, obstetric, follow-up completed [address], [place], [address], 03/09/2025 10:02:43 03/08/2025 non-stress test completed [address], [address], 03/17/2025 10:08:28 03/08/2025 US, obstetric, biophysical profile completed [address] [address], [place], [address], 03/09/2025 16:29:10 03/15/2025 non-stress test active [address] [address], [place], [address], 03/18/2025 11:23:12 03/15/2025 US, obstetric, biophysical profile + non-stress test completed [address] [place], [address], 03/15/2025 22:16:57 03/17/2025 imaging/diagnos tic result active [facility] [address], [place], [address], 03/17/2025 10:38:40 Procedure Notes None recorded. Medical Equipment None Reported. Allergies Allergen ID Allergen Name Allergen Category Reaction Reaction Severity Criticality Documentation Date Start Date Code Code System Note Provider Name and Address Organization Details Recorded Time 40302 codeine medicatio n vomiting severe Not available 08/25/2024 2670 RxNorm Luci Rodriguez [facility] 4 11:41:40 10983 acetamino phen / codeine medicatio n vomiting severe Not available 10/15/2024 31969 9 RxNorm Evita sullivan [facility] 4 15:40:19 Medications Name Sig Start [...] Address Organization Details Last Updated DateTime 02/23/2025 430704.5 37295 g 61.9 kg/m2 167.01 cm 136 mm[Hg] 83 mm[Hg] Diamante Godfreyney [facility] 16:49:18 Date Recorded Body weight Systolic blood pressure Diastolic blood pressure Provider Name and Address Organization Details Last Updated DateTime 03/03/2025 863434.692 97 g 142 mm[Hg] 85 mm[Hg] [facility] 03/03/2025 17:20:23 Date Recorded Body height Body mass index (BMI) Body weight Systolic blood pressure Diastolic blood pressure Provider Name and Address Organization Details Last Updated DateTime 03/09/2025 167.01 cm 62.9 kg/m2 278831.2 5 g 132 mm[Hg] 80 mm[Hg] [facility] 16:17:43 Date Recorded Body weight Systolic blood pressure Diastolic blood pressure Provider Name and Address Organization Details Last Updated DateTime 03/16/2025 310712.024 3 g 154 mm[Hg] 85 mm[Hg] [facility] 03/16/2025 16:56:42 Social History Question Answer Notes LastModified by Organizat ion Details LastModified Time Tobacco Smoking Status Current Every Day Smoker Luci sullivan, [facility] 08/25/2024 11:44:34 Do You Have An Advance Directive? No [email or web address] Information not available 10/15/2024 What Is Your Level Of Alcohol Consumption? None [email or web address] Information not available 08/25/2024 If You Are , What Was Your Level Of Alcohol Consumption Prior To ? Occasional [email or web address] Information not available 08/25/2024 Are You Blind Or Do You Have Difficulty Seeing? No [email or web address] Information not available 08/25/2024 What Is Your Level Of Caffeine Consumption? Moderate [email or web address] Information not available 08/25/2024 How Much Tobacco Do You Chew? None [email or web address] Information not available 08/25/2024 In The 14 Days Before Symptom Onset, Have You Had Close Contact With A Laboratory-confir med COVID-19 While That Case Was Ill? No [email or web address] Information not available 08/25/2024 In The 14 Days Before Symptom Onset, Have You Had Close Contact With A Person Who Is Under Investigation For COVID-19 While That Person Was Ill? No [email or web address] Information not available 08/25/2024 Have You Been To An Area Known To Be High Risk For COVID-19? No Information not available 08/25/2024 Are You Deaf Or Do You Have Serious Difficulty Hearing? No [email or web address] Information not available 08/25/2024 What Type Of Diet Are You Following? REGULAR [email or web address] Information not available 08/25/2024 Do You Or Have You Ever Used E-cigarettes Or Vape? Current User Of Electronic Cigarettes [email or web address] Information not available 08/25/2024 What Is The Highest Grade Or Level Of School You Have Completed Or The Highest Degree You Have Received? 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 No [email or web address] Information not available 08/25/2024 Do You Use Protection During Sex? No Information not available 08/25/2024 Do You Use Your Seat Belt Or Car Seat Routinely? Yes Information not available 08/25/2024 Do You Have Smoke And Carbon Monoxide Detectors In Your Home? Yes [email or web address] Information not available 08/25/2024 How Much Tobacco Do You Smoke? No [email or web address] Information not available 08/25/2024 Do You Feel Stressed (tense, Restless, Nervous, Or Anxious, Or Unable To Sleep At Night)? [id number] Information not available 10/15/2024 Do You Use Any Illicit Or Recreational Drugs? No [email or web address] Information not available 10/15/2024 Do You Use Sunscreen Routinely? No [email or web address] Information not available 08/25/2024 Has Tobacco Cessation Counseling Been Provided? Yes Information not available 08/25/2024 On What Date Was Tobacco Cessation Counseling Provided? 08/25/2024 Information not available 08/25/2024 Have You Used IV Drugs? No [email or web address] Information not available 08/25/2024 Do You Or Have You Ever Used Any Other Forms Of Tobacco Or Nicotine? Yes [email or web address] Information not available 08/25/2024 Sex: Unknown Functional Status Question Answer Note LastModified by Organizat ion Details LastModified Time Do you have difficulty walking or climbing stairs? No [email or web address] Information not available 08/25/2024 Are you able to walk? YESWOREST [email or web address] Information not available 08/25/2024 Are you able to care for yourself? Yes [email or web address] Information not available 08/25/2024 Do you have difficulty dressing or bathing? No Information not available 08/25/2024 What is your exercise level? Occasional [email or web address] Information not available 08/25/2024 Mental Status None recorded. Family History Relationship Description Onset Age of this Age Resolved Age Notes LastModified by Organization Details LastModified Time Mother Anxiety disorder [email or web address] Not available 2024 16:38:03 Mother Disorder of thyroid gland Not available 2024 16:38:03 Mother Heart disease [email or web address] Not available 2024 16:38:03 Father Diabetes mellitus [email or web address] Not available 08/25 11:41:40 Medical History Condition Response Allergies (Food, seasonal, environmental ) N Other N Drug/Latex Allergies/Reactions N Blood Transfusion N Breast Cancer N Dermatologic Disorders N Lung Disease N Defects or Inherited Disease N Breast Problem N Gestational Diabetes N Hematologic disorders N Anesthesia Complications N History of STI N Deep Vein Thrombosis N Polycystic ovary syndrome Y Anxiety Disorder N Autoimmune disease N Arthritis N Polyps N Infertility N Acid Reflux (GERD) N History of abnormal pap N Cancer N Varicosities N Stroke N Neurologic/Epilepsy N Endometriosis N High Cholesterol N Fibromyalgia N Headaches N Kidney Disease N Heart Problems N Thyroid Problems N Kidney or Bladder Problems N GI Problems N Eating Disorder [...] SNOMED-CT Code Diagnosis ICD10 Code Diagnosis Note [id number] Aide [facility] [address],[place] [address] 08/25/2024 10:02:47 08/25/2024 10:41:54 screening 706770843 Z36.87 Z3A.09 [id number] Cheryl Otoole [facility] [address],[place] [address] 08/25/2024 10:07:18 08/25/2024 14:19:38 Amenorrhea 43992092 N91.2 Z32.01 [id number] [facility] [address],[place] [address] 09/16/2024 15:25:22 09/16/2024 16:38:25 [id number] [facility] [address],[place] [address] 09/17/2024 11:15:27 09/20/2024 10:13:34 screening 656029353 Z36.82 Z3A.12 [id number] Timo Bustos MD [place] [facility] [address],[place] [address] 09/17/2024 11:15:43 09/20/2024 10:13:46 Routine care 699675473 Z34.90 [id number] YANETH SCHULTZ MD [place] [address],[place] [address] 10/15/2024 15:27:00 10/15/2024 16:34:51 Maternal obesity complicating , childbirth and the puerperium, antepartum 8787444266 07 O99.212 Prediabetes 310422703 R7 3.03 Gestation period, 16 weeks 90558075 Z3A.16 [id number] [facility] [address],[place] [address] 11/11/2024 10:00:23 11/11/2024 11:26:11 screening for malformation 794691826 Z36.3 O99.210 Z3A.20 780507 Timo Bustos MD [place] [address],[place] [address] 11/11/2024 10:00:51 11/11/2024 12:11:25 Routine care 757423259 Z34.90 [id number] [facility] [address],[place] [address] 12/09/2024 14:52:07 12/09/2024 15:55:36 Maternal obesity complicating , childbirth and the puerperium, antepartum 7173942256 07 O99.212 Z36.2 O43.122 Z3A.24 [id number] Timo Bustos MD [place] [address],[place] [address] 12/09/2024 14:52:32 12/09/2024 17:14:42 Routine care 658706849 Z34.90 [id number] Aide Mendez [place] [facility] [address],[place] [address] 01/06/2025 15:44:13 01/06/2025 16:43:45 screening 240522356 Z36.2 Z3A.28 [id number] Timo Bustos MD [place] [address],[place] [address] 01/06/2025 15:53:47 01/06/2025 16:56:17 Routine care 443464272 Z34.90 [id number] YANETH SCHULTZ MD [place] [address],[place] [address] 01/20/2025 15:02:59 01/20/2025 16:22:09 Maternal obesity complicating , childbirth and the puerperium, antepartum 8970794910 07 O99.212 Marginal i nsertion of umbilical cord 65938141 O43.129 Gestation period, 30 weeks 71593878 Z3A.30 [id number] [facility] [address],[place] [address] 02/03/2025 15:52:55 02/03/2025 16:30:46 Maternal obesity complicating , childbirth and the puerperium, antepartum 5978863084 07 O99.212 O43.122 O24.410 Z3A.32 [id number] Timo Bustos MD [place] [address],[place] [address] 02/03/2025 15:54:16 02/07/2025 03:34:58 Routine care 800161332 Z34.90 [id number] Timo Bustos MD [place] [facility] [address],[place] [address] 02/09/2025 15:26:55 02/09/2025 16:18:23 Delivery by elective section 690558764 Z37.9 [id number] Timo Bustos MD [place] [address],[place] [address] 02/16/2025 16:37:27 02/17/2025 07:32:50 Routine care 213523850 Z34.90 [id number] Timo Bustos MD [place] [facility] [address],[place] [address] 02/23/2025 16:30:23 02/23/2025 17:33:47 Routine care 522321044 Z34.90 [id number] Aide Mendez [place] [facility] [address],[place] [address] 03/03/2025 16:34:27 03/03/2025 17:18:32 Placental condition affecting management of mother 895501604 O43.103 O24.414 O99.213 Z3A.36 [id number] Timo Bustos MD [facility] [address],[place] [address] 03/03/2025 16:34:55 03/03/2025 17:51:13 Routine care 361087600 Z34.90 [id number] Timo Bustos MD [place] [facility] [address],[place] [address] 03/09/2025 16:08:58 03/09/2025 16:45:16 Routine care 794397799 Z34.90 [id number] Timo Bustos MD [place] [facility] [address],[place] [address] 03/16/2025 16:37:18 03/16/2025 17:18:17 Third trimester 67266027 Z34.03 Health Concerns Section Related Observation LastModified by Organization Detai ls LastModified Time None Recorded Concern Status LastModified by Organization Details LastModified Time None Recorded Advance Directives Directive N: Payers Encounter Date Sequence Insurance Name Policy Number Policy Witt Covered Member ID Witt Member ID Guarantor Name 02/23/2025 1 [employer] (PPO) [facility] [id number] [facility] 1 [employer] (PPO) [facility] [id number] [facility] 03/03/2025 1 [employer] (PPO) JACQUELINE [facility] [id number] Elena Cordon [facility] 03/09/2025 1 [employer] (PPO) JACQUELINE [facility] [id number] Elena Cordon [facility] 03/16/2025 1 [employer] (PPO) JACQUELINE [facility] [id number] [facility] OBGyn Episode Ob Episode Information Episode Created Date Number of Fetuses Patient Bloodtype Patient rh Status Prepregnancy Weight lbs Domestic Partner Domestic Partner Phone Father Name Escrow Agent Status 09/17/20 24 1 O Positive 345 Ezekiel OPEN Fetus Data First Name Last Name Admitted to NICU Weight (g) Sex Living Outcome Pediatric Complications Fetus ID Race Codes Race Delivery Type [id number] Problems Problem Notes pyelectasis Problem Name Start Date End Date Resolution Snomed Code Not e Marginal insertion of umbilical cord 31533077 Gestational diabetes mellitus 32651077 BS qid , serial growth 5u lantus @ bedtime - testing@ LD growth us here Polycystic ovary syndrome 080432202 Obesity 513831547 Class 3 BM I >50antenatal testing @34wksAnesthesia consult w pre admit Elective section 037754433 Caleb Calculation Initial Caleb Date Initial Exam [...] Weight in lbs Pre/Post Dialysis Refused Weight 345.929204344738 BP Diastolic BP Location Tested BP Systolic [...] Weight in lbs Pre/Post Dialysis Refused Weight 346.981994544823 BP Diastolic BP Location Tested BP Systolic [...] Type Weight in lbs Pre/Post Dialysis Refused 351.109319637930 BP Diastolic BP Location Tested BP Systolic [...] Type Weight in lbs Pre/Post Dialysis Refused 353.709694944142 BP Diastolic BP Location Tested BP Systolic [...] Type Weight in lbs Pre/Post Dialysis Refused 371.856281097375 BP Diastolic BP Location Tested BP Systolic [...] Type Weight in lbs Pre/Post Dialysis Refused 371.149861237500 BP Diastolic BP Location Tested BP Systolic BP Type 78 L arm 123 sitting Fetus Heart Rate Present A 155 Fetus Movement A Yes Comments Patient c/o [place] Dolan an d swelling in feet. Good [...] Type Weight in lbs Pre/Post Dialysis Refused 369.919454670166 BP Diastolic BP Location Tested BP Systolic [...] Type Weight in lbs Pre/Post Dialysis Refused 378.811225127544 BP Diastolic BP Location Tested BP Systolic [...] Weight in lbs Pre/Post Dialysis Refused Weight 384.634704224309 BP Diastolic BP Location Tested BP Systolic [...] Type Weight in lbs Pre/Post Dialysis Refused 380.020734093467 BP Diastolic BP Location Tested BP Systolic [...] Type Weight in lbs Pre/Post Dialysis Refused 381.867996156744 BP Diastolic BP Location Tested BP Systolic [...] Weight in lbs Pre/Post Dialysis Refused Weight 387.558301698177 BP Diastolic BP Location Tested BP Systolic [...] Type Weight in lbs Pre/Post Dialysis Refused 390.327468410320 BP Diastolic BP Location Tested BP Systolic [...]
[2025-03-21] MEDS: ACETAMINOPHEN 500 MG TABLET 1000 MG PO (06:15)
[2025-03-21] MEDS: LACTATED RINGERS 1,000 ML 125 ML IV CONT ×2 (06:15→09:40)
--- NOTE | 2025-03-21 06:17 | LDADM ---
This patient, Elena Altman, was admitted to Labor/Delivery/Recovery 120 on 03/21/25 at 05:20. Plans for labor, pain management and were discussed with patient. Patient/family oriented to hospital policies and general routines including ID bracelet, bed and alarms, visiting hours, pain management, procedures, bathroom and other care routines, personal items, smoking policy, room service/diet and guest tray routines, security routines, and visiting hours. Patient/Family are encouraged to report perceived risks to care and to ask questions if they do not understand what they are told or what they should do. See OBIX for further documentation.
[2025-03-21] MEDS: FAMOTIDINE 20 MG/2 ML VIAL IV PUSH (06:53)
[2025-03-21] MEDS: ONDANSETRON INJ 4 MG/2 ML VIAL IV PUSH (06:53)
[2025-03-21 06:59] LABS: Alanine Aminotransferase 16 U/L (6-35); Albumin Level 3.1 g/dL (3.5-5.1); Alkaline Phosphatase 147 U/L (38-126); Anion Gap 11 mmol/L (4-12); Aspartate Amino Transferase 20 U/L (14-36); Bilirubin,Total 0.3 mg/dL (0.2-1.3); Blood Urea Nitrogen 7 mg/dL (7-17); Calcium 8.2 mg/dL (8.4-10.2); Carbon Dioxide 17 mmol/L (22-30); Chloride 106 mmol/L (98-107); Estimated CRCL calculation 241 ml/min; Estimated Glomerular Filt Rate > 60; Glucose 167 mg/dL (65-110); Potassium 3.6 mmol/L (3.4-5.0); Sodium 134 mmol/L (137-145)
[2025-03-21] MEDS: ceFAZolin 3 GM/D5W 100 ML 100 ML IVPB (07:30)
--- NOTE | 2025-03-21 07:30 | PM.IMHP ---
H&P: HPI History of Present Illness Date/Time: 03/21/25 07:30 Chief Complaint: Term Narrative: 34-year-old female with term . Primiparous. Presents For primary elective delivery. She understands risks, benefits, and alternatives. She has completed informed consent process and is ready to proceed. The patient understands the details of the procedure. The procedure has been explained in detail. She understands the risks. She understands that injuries may occur that result in hospitalization, more surgery, and severe illness. She understands risk of hemorrhage and infection. She denies any chest pain or shortness of breath. She denies any nausea, vomiting, fever, chills. Review of Systems Review of Systems: All systems reviewed & are unremarkable except as noted in HPI and below Constitutional: Constitutional: Denies chills, Denies fatigue, Denies fever(s) and Denies weakness Eyes: Eyes: Denies blurry vision, Denies change in vision, Denies loss of peripheral vision, Denies loss of vision, Denies other visual disturbances and Denies eye pain ENT: Denies vertigo, Denies dizziness, Denies hearing loss, Denies mouth pain, Denies nasal obstruction, Denies neck mass and Denies neck pain Cardiovascular: Cardiovascular: Denies chest pain, Denies diaphoresis, Denies syncope, Denies leg edema and Denies dyspnea Respiratory: Respiratory: Denies chest congestion, Denies cough, Denies hemoptysis, Denies dyspnea and Denies wheezing Gastrointestinal: Gastrointestinal: Denies abdominal pain, Denies constipation, Denies diarrhea, Denies nausea and Denies vomiting Genitourinary: Genitourinary: Denies hematuria, Denies change in libido, Denies nocturia, Denies genital lesions, Denies flank pain and Denies urinary urgency Musculoskeletal: Musculoskeletal: Denies abnormal gait, Denies back pain, Denies myalgias, Denies arthralgias, Denies joint swelling, Denies muscle weakness and Denies neck pain Integumentary/Breasts: Skin/Breast: Denies swelling, Denies breast pain, Denies breast mass, Denies dry skin, Denies nipple discharge, Denies unusual bruising and Denies jaundice Neurologic: Denies Neuro-related abnormal movements, Denies Abnormal speech present, Denies abnormal gait, Denies behavioral changes, Denies confusion, Denies vertigo, Denies dizziness, Denies syncope, Denies loss of vision, Denies memory loss, Denies convulsions and Denies weakness Psychiatric: Psychiatric: Denies abnormal sleep pattern, Denies behavioral changes, Denies change in libido, Denies confusion, Denies depression, Denies anhedonia and Denies memory loss Endocrine: Endocrine: Reports no additional endocrine complaints, Denies change in libido and Denies fatigue Hematologic/Lymphatic: Hematologic/Lymphatic: Reports no additional hematologic/lymphatic complaints Allergic/Immunologic: Allergic/Immunologic: Reports no additional allergic/immunologic complaints and Denies wheezing PMFSH Past Medical History Medical History (Updated 03/21/25 @ 07:35 by Roland Bustos MD) Morbid obesity PCOS (polycystic ovarian syndrome) HONG (generalized anxiety disorder) Family History Family History (Updated 03/01/25 @ 15:51 by Batool Ford RN) Other Unknown family medical history Social History Social History (Updated 01/27/20 @ 16:21 by Jeana Martin) Smoking status: Never smoker Tobacco type: e-cigarettes/vaping Smokeless tobacco user: dissolvable tobacco Alcohol intake: current Drinks per week: 2 Substance use: never Substance use type: marijuana Do You Feel Safe in your Home?: Yes Lack of Transportation: No Lack of Food: Never True Current Housing: I Have Housing Concerned About Future Housing: No Difficulty Paying Gas/Electric Bills: No Difficulty Paying for Meds: No Currently Unemployed: No Education: High School Diploma/GED Difficulty w/ Childcare or Family Care: No Living arrangements: with family Occupation/Education: occupation Gender identity (if verbalized by the patient): Female Spiritual care concerns: No Meds Home Medications and Allergies Home Medications ?Medication ?Instructions ?Recorded ?Confirmed ?Type aspirin 81 mg tablet,delayed 81 mg PO DAILY 02/10/25 03/01/25 History release (Adult Aspirin Regimen) insulin glargine 100 unit/mL 15 unit subcut HS 02/10/25 03/01/25 History subcutaneous solution (Lantus U-100 Insulin) vits no.126-ferrous fum 1 tablet PO QPM 02/10/25 03/01/25 History 28 mg iron-folic acid 800 mcg tablet (Classic ) Allergies Allergy/AdvReac Type Severity Reaction Status Date / Time codeine AdvReac Unknown Nausea and Verified 03/01/25 16:20 Vomiting Vital Signs Vital Signs - 24 hr 03/21/25 05:39 03/21/25 05:46 03/21/25 06:05 Temperature 97.6 F Pulse Rate 83 77 Blood Pressure 135/81 135/77 Oxygen Delivery 03/21/25 06:15 03/21/25 06:17 03/21/25 06:29 Temperature 97.6 F Pulse Rate 85 Blood Pressure 104/60 Oxygen Delivery Room Air 03/21/25 06:31 03/21/25 06:46 03/21/25 07:02 Temperature Pulse Rate 71 67 69 Blood Pressure 109/61 125/63 131/71 Oxygen Delivery 03/21/25 07:17 Temperature Pulse Rate 73 Blood Pressure 115/67 Oxygen Delivery Exam Const: General: cooperative, healthy appearing, comfortable and no acute distress Orientation/consciousness: oriented to person, oriented to place and oriented to time HENMT: Head: normal to inspection Ears: external ears normal Face/Nose/Sinus: Normal external nose present and normal facial exam Face and sinus: normal facial exam Eyes: General: appearance normal, both eyes and all related structures Neck: Neck: normal visual inspection, trachea midline and supple Resp: Auscultation: clear to auscultation bilaterally, no crackles, no rales, no rhonchi and no wheezes Cardio: Rate: regular rate Rhythm: regular rhythm Heart sounds: no click, no murmurs and no rubs GI: GI Palp: No abdominal tenderness, No Soft to palpation, No Tenderness to palpation present (GI) and No Palpable mass present Auscultation: normal bowel sounds Skin: General skin exam: normal color and no rashes or lesions noted Neuro: General: oriented to person, oriented to place and oriented to time Extrem: General: normal to inspection, no joint enlargement, no clubbing, cyanosis or edema, no pedal edema and no calf tenderness Psych: Appearance: grossly normal Mental Status: mental status grossly normal Speech and movement: Normal speech and movement present H&P: Results Labs Labs: [facility] 03/21/25 06:40 Sodium 134 L Potassium 3.6 Chloride 106 Carbon Dioxide 17 L BUN 7 Creatinine 0.44 L Glucose 167 H Calcium 8.2 L Liver Function 03/21/25 Range/Units 06:40 Total Bilirubin 0.3 (0.2-1.3) mg/dL AST 20 (14-36) U/L ALT 16 (6-35) U/L Alkaline Phosphatase 147 H (38-126) U/L Albumin 3.1 L (3.5-5.1) g/dL Assessment and Plan Assessment and plan (1) Term : Code(s): Z34.90 - Encounter for supervision of normal , unspecified, unspecified trimester Status: Acute (2) Delivery by elective section: Code(s): O82 - Encounter for delivery without indication Status: Acute Assessment and Plan: 34-year-old female with term . Primiparous. Presents For primary elective delivery. She understands risks, benefits, and alternatives. She has completed informed consent process and is ready to proceed.
--- NOTE | 2025-03-21 07:35 | WPDHPUPDATE1 ---
History and Physical Update Update Date/Time: 03/21/25 07:35 History and Physical has been reviewed, including an updated exam of the patient. There are NO changes in the patient's condition. Risks, benefits, and alternatives have been discussed and questions answered. Patient agrees to proceed with procedure.
--- NOTE | 2025-03-21 08:38 | W.PM.OBCSD ---
OB - Delivery Note Procedure Delivery date: 03/21/25 Pre-op diagnosis: Macrosomia and Other (Elective) Post-op Diagnosis: Same Procedure Performed: Primary Surgeon: Roland Bustos MD Anesthesia type: Spinal Description of Procedure/Findings: The patient was taken the operating room.? She was prepped and draped in dorsal supine position with a leftward tilt.? This was done after spinal anesthetic was applied.? A low-transverse skin incision was made and carried down till of the fascia with the knife.? The fascial incision was made with the knife.? The fascial incision was extended laterally with Rodríguez scissors.? The fascia was tented upward superiorly and inferiorly the rectus muscles were dissected off bluntly.? The rectus muscles were the midline.? The preperitoneal fat and peritoneum were dissected open bluntly at the superior aspect of the rectus muscles.? The peritoneal incision was extended superior and inferior with good position of bladder.? The uterine incision was made with a scalpel down to the level of the amniotic cavity.? The amniotic cavity was entered bluntly.? The was delivered.? The cord was clamped and cut and the infant was handed off to waiting pediatric staff.? Cord bloods were obtained.? The placenta was removed manually.? The uterus was exteriorized.? The uterus was cleared of all clots, debris and membranes.? The uterus was closed in 0 Vicryl running lock fashion.? An imbricating over a was placed along the incision line as well.? The uterus was returned to the abdomen.? The gutters were cleared of all clots and debris.? The fascia was closed with 0 Vicryl running fashion.? The subcutaneous tissue was irrigated pinpoint bleeders were cauterized.? The subcutaneous fat was closed with interrupted sutures of 3-0 Vicryl The skin was closed with subcuticular absorbable carri.? The skin incision line was covered with glue.? The patient tolerated the procedure well.? She has taken recovery room in stable condition.? Sponge lap and needle counts were correct x2.? Complications: No immediate complications Condition: Stable Disposition: Floor
[2025-03-21] MEDS: OXYTOCIN 30 UNITS/NS 500 ML 30 UNITS/500 ML BAG 125 UNITS IV CONT (09:37)
[2025-03-21 09:45] LABS: HIV 1/2 Ab P24 Ag Result Negative (Negative)
--- NOTE | 2025-03-21 11:55 | OBPPTRN ---
1110-Patient transferred to post room #282 via stretcher. Support person present. Oriented to unit, room, information board, rooming in, admission packet and security measures. Patient verbalizes understanding.
[2025-03-21] MEDS: DOCUSATE SODIUM 100 MG CAPSULE PO ×2 (13:07→17:26)
[2025-03-21] MEDS: SIMETHICONE 80 MG TAB.CHEW PO ×2 (13:07→17:26)
[2025-03-21] MEDS: ACETAMINOPHEN 325 MG TABLET 650 MG PO ×2 (13:08→19:07)
[2025-03-21] MEDS: KETOROLAC 15 MG/ML VIAL (*BKC) IV PUSH ×2 (13:08→19:07)
--- NOTE | 2025-03-21 13:35 | PC.NURSE ---
Assisted patient to latch baby to the right breast in cradle hold. Baby latched eagerly and maintained the latch well. She suckled off and on with intermittent pauses. Mom said she could tell she was working on a dirty diaper so mom is encouraged to keep baby at breast and to continue to stimulate her to suck when she has a long pause. Mom is educated that she should try to feed for a total of 15 minutes, longer if baby desires. She will call out for assistance switching sides if needed. Reported to RN.
[2025-03-21] MEDS: DEXTROSE 5%/0.45% SOD CHL 1,000 ML 125 ML IV CONT (14:34)
[2025-03-21] MEDS: LIDOCAINE 5% PATCH 1 PATCH TRANSDERM (14:43)
[2025-03-21] MEDS: LORATADINE 10 MG TABLET PO (14:44)
[2025-03-21] MEDS: POLYSACCHARIDE IRON COMPLEX 150 MG CAPSULE PO (17:26)
[2025-03-21] MEDS: KCL 20 MEQ/D5/0.45% SOD CHL 1,000 ML 125 ML IV CONT (23:31)
[2025-03-21] MEDS: HYDROcodone/acetaminophen (*CRX) 10-325 MG TABLET 1 TAB PO (23:50)
[2025-03-22] MEDS: KETOROLAC 15 MG/ML VIAL (*BKC) IV PUSH ×2 (01:50→07:44)
[2025-03-22] MEDS: ACETAMINOPHEN 325 MG TABLET 650 MG PO ×4 (01:50→21:15)
--- NOTE | 2025-03-22 02:23 | PC.NURSE ---
Encouraged pt to put to breast if her goal is to breastfeed when she goes home, she states she now thinks she wants to pump and bottle feed because is doing so well with formula. Offered to bring pt one of our pumps and get her set up and she declined at this time stating her sister is bringing hers today around 9 am and she prefers to wait. Encouraged pt to call out if she changes her mind and pt verbalized understanding. bottle feeding enfamil at this time
[2025-03-22 03:50] VITALS: BP 123/77; PULSE 73; RESP 18; TEMP 36.6; O2SAT 100
[2025-03-22 05:18] LABS: Basophils Percent Auto 0.2 % (0.2-1.2); Eosinophils Absolute Auto 0.2 K/mm3 (0-0.3); Eosinophils Percent Auto 2.3 % (0-4.4); Hematocrit 30.9 % (37.0-47.0); Hemoglobin 9.7 g/dL (12.0-15.0); Immature Granulocyte Absolute 0.04 K/mm3 (0.00-0.031); Immature Granulocyte Percent A 0.5 % (0-0.5); Lymphocytes Absolute Auto 1.82 K/mm3 (0.9-3.2); Lymphocytes Percent Auto 21.1 % (18.3-44.2); Mean Corpuscular HGB Conc 31.4 g/dl (32-36); Mean Corpuscular Hemoglobin 29.2 pg (26-34); Mean Corpuscular Volume 93.1 fl (80-100); Mean Platelet Volume 11.2 fl (7.4-10.4); Monocytes Absolute Auto 0.7 K/mm3 (0.1-0.6); Monocytes Percent Auto 7.5 % (2.6-8.5); Neutrophils Absolute Auto 5.9 K/mm3 (1.3-6.7); Neutrophils Percent Auto 68.4 % (45.5-73.1); Platelet Count Result 175 k/mm3 (150-375); Red Blood Count 3.32 M/mm3 (4.2-5.4); Red Cell Distribution Width 13.5 % (11.5-14.5); White Blood Count 8.6 K/mm3 (4.5-10.0)
[2025-03-22 07:10] VITALS: BP 130/80; PULSE 66; RESP 16; TEMP 36.6; O2SAT 98
[2025-03-22] MEDS: POLYSACCHARIDE IRON COMPLEX 150 MG CAPSULE PO ×2 (07:45→17:36)
[2025-03-22] MEDS: MULTIVIT/MIN/PREN/FOL AC/IRON TABLET 1 TAB PO (07:45)
[2025-03-22] MEDS: SIMETHICONE 80 MG TAB.CHEW PO ×3 (07:45→17:36)
[2025-03-22] MEDS: DOCUSATE SODIUM 100 MG CAPSULE PO ×2 (07:45→17:36)
--- NOTE | 2025-03-22 09:32 | WPDNBDN ---
Delivery Note Data Date/Time: 03/22/25 09:32 [place] Length (Inches): 1.65 m Maternal Info : 1
--- NOTE | 2025-03-22 10:15 | P.PNOB_ITS ---
OB - PN: Subj Subjective Date/time seen: 03/22/25 10:15 Patient comments: no complaints, pain well controlled, tolerating diet and flatus present OB - PN: Obj Data Labs 03/22/25 03:56 03/21/25 06:40 Labs: Laboratory Results - last 24 hr 03/22/25 03:56 WBC 8.6 RBC 3.32 L Hgb 9.7 L Hct 30.9 L MCV 93.1 MCH 29.2 MCHC 31.4 L RDW 13.5 Plt Count 175 MPV 11.2 H Immature Gran % (Auto) 0.5 Neut % (Auto) 68.4 Lymph % (Auto) 21.1 [place] % (Auto) 7.5 Eos % (Auto) 2.3 Baso % (Auto) 0.2 Lymph # (Auto) 1.82 [place] # (Auto) 0.7 H Eos # (Auto) 0.2 Baso # (Auto) 0.0 Abs Immat Gran (auto) 0.04 H Absolute Neuts (auto) 5.9 Absolute Nucleated RBC 0.000 Nucleated RBC % 0.0 OB - PN A/P Plan day: 1 Comments: Post Op LTCS - no problems, routine recovery Time Spent With Patient Time: Total time spent is greater than 50% in coordination of care (as documented) at patient's floor/unit and/or counseling patient: Exam 2 Const: General: cooperative, healthy appearing, comfortable and no acute distress Resp: Auscultation: no crackles, no rales, no rhonchi and no wheezes Cardio: Rhythm: regular rhythm Heart sounds: no click and no murmurs GI: Inspection: non-distended Auscultation: normal bowel sounds Extrem: General: normal to inspection, no pedal edema and no calf tenderness
[2025-03-22] MEDS: ENOXAPARIN 40 MG/0.4 ML SYRINGE SUB-Q (11:10)
--- NOTE | 2025-03-22 12:03 | PC.NURSE ---
1110. Checked in with mom to assist with questions, concerns or help with feeding . Mom maintains her desire from last night of wanting to pump and bottle feed. Mom reports she has her own [employer] pump and plans to use that and feed pumped breast milk and formula. Mom encouraged to call if she changes her mind and would like to put baby to breast. Mom also encouraged to call for help setting up or using her pump. Mom has visitors at this time. Reported to the primary RN.
--- NOTE | 2025-03-22 13:56 | WPDANLDPN2 ---
Anes-Prog Note L&D Date/Time: 03/22/25 13:56 Comfortable throughout: section Neuraxial method: spinal Epidural/Spinal procedure site: clean & non-tender Neuro status: Neuro function grossly intact. Cardiovascular status: normal Respiratory status: normal Airway patency: baseline Mental status: baseline Post-Op hydration status: normal Vital Signs: Last Vital Signs Temp 36.6 C 03/22/25 07:10 Pulse 66 03/22/25 07:10 Resp 16 03/22/25 07:10 BP 130/80 03/22/25 07:10 Pulse Ox 98 03/22/25 07:10 O2 Del Method Room Air 03/21/25 11:00 Pain score (VAS): 12/03 I/O: Intake & Output 03/21/25 03/22/25 03/22/25 23:59 07:59 15:59 Intake Total 1750 650 540 Output Total 300 950 600 Balance 1450 -300 -60 Post-procedural complaints: none Patient feedback: Patient satisfied with anesthetic care.
--- NOTE | 2025-03-22 13:57 | WPDANLDNPN2 ---
Anes-Prog Note L&D-Neuraxial Date/Time: 03/22/25 13:57 Neuraxial medications: intrathecal PF morphine Opiod-related complaints: none Patient feedback: Patient satisfied with post-operative pain management.
--- NOTE | 2025-03-22 14:04 | W.PM.OBCSD ---
OB - Delivery Note Procedure Delivery date: 03/22/25 Pre-op diagnosis: Arrest of Dilation Procedure Performed: Primary Surgeon: Roland Bustos MD Anesthesia type: Spinal Urine Output: 600
[2025-03-22] MEDS: IBUPROFEN 600 MG TABLET PO ×2 (15:38→21:15)
[2025-03-22 19:18] VITALS: BP 142/77; PULSE 79; RESP 16; TEMP 37.2; O2SAT 100
[2025-03-22] MEDS: LIDOCAINE 5% PATCH 1 PATCH TRANSDERM (21:15)
[2025-03-23] MEDS: IBUPROFEN 600 MG TABLET PO ×2 (03:21→08:59)
[2025-03-23] MEDS: ACETAMINOPHEN 325 MG TABLET 650 MG PO ×2 (03:21→08:59)
--- NOTE | 2025-03-23 07:15 | PC.NURSE ---
Patient viewed the discharge video Mother & Baby Care, The First Two Weeks . Patient was given the opportunity and encouraged to ask questions. Patient verbalized understanding of information shared and has been given the mother/baby guide for home reference.
--- NOTE | 2025-03-23 07:30 | PC.NURSE ---
Consulted with patient to assess needs related to . Discussed with mother her successes, concerns and any questions she has. She is currently supplementing per maternal preference and placing infant to breast before offering bottles. When feedings are not successful at the breast she is offering formula bottles and pumping. Discussed the importance of stimulating the breast every 2-3 hours either by or pumping to encourage milk production. Additionally, discussed PCOS and the effect it may have on milk production and the delay in her milk coming in. Encouraged understanding the benefits of skin to skin between feedings. Mother states understanding and will call for assistance if assistance is needed.
--- NOTE | 2025-03-23 07:34 | P.PNOB_ITS ---
OB - PN: Subj Subjective Date/time seen: 03/23/25 07:34 Interval history: pp day 2 flatus present, voiding w/o difficulty desires d/c home OB - PN: Obj Data Labs 03/22/25 03:56 03/21/25 06:40 OB - PN A/P Plan day: 2 Plan: routine care and discharge home Time Spent With Patient Time: Total time spent is greater than 50% in coordination of care (as documented) at patient's floor/unit and/or counseling patient: Review of Systems 2 Review of Systems: All systems reviewed & are unremarkable except as noted in HPI and below Exam 2 Const: General: cooperative, healthy appearing and comfortable Resp: Effort & Inspection: normal respiratory effort Cardio: Rate: regular rate
--- NOTE | 2025-03-23 07:39 | P.DS_ITS ---
DS: Admitting Diagnosis Discharge Date 03/23/25 Admitting Diagnosis repeat DS: Discharge Diagnosis Discharge Diagnosis (1) Delivery by elective section: Code(s): O82 - Encounter for delivery without indication Status: Acute OB - DS: Summary OB Procedures : None OB Procedures Intrapartum: OB Procedures: : None Peripartum Data Procedures: Procedures Operation Date: 03/21/25 07:30 Actual Procedure Side Surgeon p Section Roland Bustos MD Time Spent with Patient Time attestation: Total time spent providing and/or coordinating discharge services: Discharge Plan Discharge Attending physician on discharge: Roland Bustos Discharging Clinician: Cheryl Otoole Patient Disposition: Home Activity: pelvic rest Diet: regular Patient Instructions: Antibiotic Form Patient Language: Upper Sorbian Stand Alone Forms: General Discharge Information Follow-up/Referrals: Roland Bustos MD [Physician] - 1 Week Discharge Medications: New hydrocodone-acetaminophen 5-325 mg Tablet 1 tablet PO Q3H PRN (Reason: Breakthrough Pain Rated 4-6) 10 Days Qty: 25 0RF Continued Classic 28 mg iron- 800 mcg tablet 1 tablet PO QPM Discontinued aspirin [Adult Aspirin Regimen] 81 mg tablet,delayed release (DR/EC) 81 mg PO DAILY insulin glargine [Lantus U-100 Insulin] 100 unit/mL solution 15 unit subcut HS Date of admission: 03/21/25 05:20 Primary Care Provider: Chris Rangel Admitting Provider: Roland Bustos Attending physician on admission: Roland Bustos Condition: Stable
[2025-03-23 07:55] VITALS: BP 137/91; PULSE 76; RESP 18; TEMP 36.8; O2SAT 100
[2025-03-23] MEDS: ENOXAPARIN 40 MG/0.4 ML SYRINGE SUB-Q (08:59)
[2025-03-23] MEDS: SIMETHICONE 80 MG TAB.CHEW PO (08:59)
[2025-03-23] MEDS: DOCUSATE SODIUM 100 MG CAPSULE PO (08:59)
[2025-03-23] MEDS: MULTIVIT/MIN/PREN/FOL AC/IRON TABLET 1 TAB PO (08:59)
[2025-03-23] MEDS: POLYSACCHARIDE IRON COMPLEX 150 MG CAPSULE PO (08:59)
[2025-03-24 10:18] VITALS: BP 124/79; PULSE 78; RESP 18; TEMP 36.7; O2SAT 100
== END 2025-03-23 12:20 | disposition home or self-care (01) | DRG 788 ==
LOC: ANHLDR 05:24 → ANHOB2 11:21
PROVIDERS: Admitting Provider Obstetrics & Gynecology; PCP Family Medicine; Visit Provider Obstetrics & Gynecology
PROC: 10D00Z1 Extraction of Products of Conception, Low, Open Approach (ICD-10-PCS; CPT 59514; principal; 2025-03-21 07:30)
DX: O36.63X0 Maternal care for excessive fetal growth, third trimester, not applicable or unspecified (principal); Z37.0 Single live birth; Z3A.39 39 weeks gestation of pregnancy; O77.0 Labor and delivery complicated by meconium in amniotic fluid; O24.429 Gestational diabetes mellitus in childbirth, unspecified control
CPT/HCPCS: 36415; 80053; 85025; 86703; A9270; G0432; J0690; J1650; J1885; J2274; J2405; J2590; J3480; J7120